=== PATIENT | male | born 1995 | race Caucasian/White ===

== ENCOUNTER 2020-11-03 13:40 | Emergency (ER) | payer MEDICAID, SELFPAY ==
[2020-11-03 14:02] VITALS: BP 130/69; PULSE 81; RESP 17; TEMP 37; O2SAT 99; BMI 33.6
[2020-11-03 16:46] VITALS: BP 152/82; PULSE 83; RESP 16; TEMP 37; O2SAT 97
--- NOTE | 2020-11-03 17:08 | ED_ITS ---
HPI - General Adult General Chief complaint: General Medical Stated complaint: swollen jaw area,no inj Time Seen by Provider: 11/03/20 14:07 Source: patient Mode of arrival: ambulatory Limitations: no limitations History of Present Illness HPI narrative: RIGHT-SIDED LOWER MOLAR PAIN/CHEEK SWELLING FOR THE PAST 1 DAY Onset (ago): day(s) Location: right Radiation: non-radiation Severity: moderate Severity scale (1-10): 4 Exacerbating factors: none Treatments prior to arrival: none Related Data Previous Rx's Medication Instructions Recorded ibuprofen 800 mg PO Q8H PRN #30 tab 11/03/20 penicillin V potassium 500 mg PO BID 10 Days #20 tab 11/03/20 Allergies Allergy/AdvReac Type Severity Reaction Status Date / Time SEASONAL ALLERGIES Allergy Mild RUNNY NOSE Uncoded 06/26/20 16:24 SNEEZING pollen Allergy Unknown Uncoded 08/07/14 00:00 Review of Systems Review of Systems: Constitutional: No Weight loss, No Fever, No Chills, No Night Sweats, No Fatigue, No Malaise ENT/Mouth: No Hearing loss, No Ear Pain, No Nasal Congestion, No Sinus Pain, No Hoarseness, No sore throat, No Rhinorrhea, No Swallowing Difficulty Eyes: No Eye Pain, No Swelling, No Redness, No Foreign Body, No Discharge, No Vision Changes Cardiovascular: No Chest Pain, No SOB, No Dyspnea on Exertion, No Orthopnea Respiratory: Negative Gastrointestinal: Negative Genitourinary: Negative Musculoskeletal: No joint pain, No Myalgias, No Joint Swelling Skin: No Skin Lesions, No rash Neuro: No Weakness, No Numbness, No Paresthesias, No Loss of Consciousness, No Dizziness, No Headache Psych: No Social Issues Heme/Lymph: No Bruising, No Bleeding,No Lymphadenopathy Endocrine: No Polyuria, No Polydipsia, No Temperature Intolerance Yes all other systems are reviewed and are negative REPLACED BY [facility] Past Medical History Medical History (Updated 11/03/20 @ 17:20 by Sincere Masters NP) Patient denies medical problems Social History Social History Smoked in Last 30 Days: Yes Use of substances other than those prescribed or required for medical reasons: Yes Substance Use Type: Marijuana Substance Use Frequency: Weekly Last Used Substance: Days (ago) Advance Directives: No Advance Directives Information Provided: Yes Physical Exam Vital Signs: Vital Signs: Last Vital Signs Temp 98.6 F 11/03/20 16:46 Pulse 83 11/03/20 16:46 Resp 16 11/03/20 16:46 BP 152/82 H 11/03/20 16:46 Pulse Ox 97 11/03/20 16:46 Body Mass Index 33.6 Reviewed Const: General: cooperative and healthy appearing; No acute distress or intoxicated appearing Nutritional Appearance: average body habitus Orientation/consciousness: patient oriented x3 HENMT: Head: Yes normal to inspection Ears: hearing grossly normal bilaterally Teeth image: 1. Extensive decay to 30 and 31 with previous feeling. Right-sided cheek with mild swelling no obvious erythema or palpable mass. Eyes: General: appearance normal, both eyes and all related structures Visual Hernandez: normal visual hernandez by confrontation Neck: Neck: Yes normal visual inspection, No positive Brudzinski's sign, No positive Kernig's sign and No tender Thyroid: Thyroid normal Chest: Chest palpation & inspection: normal inspection of the chest Resp: Effort & Inspection: normal respiratory effort Cardio: Jugular venous distension: no JVD Skin: General skin exam: no rashes or lesions noted Neuro: General: patient oriented x3 Extrem: General: Yes normal to inspection Discharge Plan Discharge Clinical Impression: Pain due to dental caries Patient Disposition: Home, Self-Care Instructions: Mouth Care (ED) Additional Instructions: Salt water gargle Chew on sour candy Warm compresses [place] diet Push fluids Take antibiotic as prescribed Follow-up with Dental as scheduled next case he has symptoms Thank you Prescriptions: New ibuprofen 800 mg tablet 800 mg PO Q8H PRN (Reason: pain) Qty: 30 RF: 0 penicillin V potassium 500 mg tablet 500 mg PO BID 10 Days Qty: 20 RF: 0 Referrals: Physician,None [Primary Care Provider] - 3 days (Dental as scheduled)
== END 2020-11-03 17:41 | disposition home or self-care (01) ==
PROVIDERS: Emergency Provider Emergency Medicine Emergency Medical Services
DX: K02.9 Dental caries, unspecified (principal); K08.89 Other specified disorders of teeth and supporting structures
CPT/HCPCS: 99283; 99284

== ENCOUNTER 2020-12-29 18:55 | Emergency (ER) | payer MEDICAID, SELFPAY ==
[2020-12-29 19:25] VITALS: BP 143/81; PULSE 63; RESP 16; TEMP 36.8; O2SAT 99; BMI 31.3
--- NOTE | 2020-12-29 21:26 | ED.NAVMDI ---
HPI - Nausea/Vomiting/Diarrhea General Chief complaint: Nausea/Vomiting/Diarrhea Stated complaint: ABD PAIN Time Seen by Provider: 12/29/20 21:05 Source: patient Mode of arrival: ambulatory Limitations: no limitations History of Present Illness HPI Narrative: Patient comes emergency room complaining of nausea vomiting and diarrhea since this morning. Patient states that this morning he woke up complaining of abdominal cramping, states he has had multiple episodes of vomiting and diarrhea, approximately 6 of each. Patient denies blood in the vomit or stool. Denies fever or chills MD elicited complaint: nausea, vomiting and diarrhea Related Data Previous Rx's Medication Instructions Recorded ibuprofen 800 mg PO Q8H PRN #30 tab 11/03/20 penicillin V potassium 500 mg PO BID 10 Days #20 tab 11/03/20 ibuprofen 600 mg PO TID PRN #14 tab 12/29/20 penicillin V potassium 500 mg PO BID #20 tab 12/29/20 Allergies Allergy/AdvReac Type Severity Reaction Status Date / Time SEASONAL ALLERGIES Allergy Mild RUNNY NOSE Uncoded 06/26/20 16:24 SNEEZING pollen Allergy Unknown Uncoded 08/07/14 00:00 Review of Systems Review of Systems: Constitutional : No Weight loss, No Fever, No Chills, No Night Sweats, No Fatigue, No Malaise ENT/Mouth : No Hearing loss, No Ear Pain, No Nasal Congestion, No Sinus Pain, No Hoarseness, No sore throat, No Rhinorrhea, No Swallowing Difficulty Eyes: No Eye Pain, No Swelling, No Redness, No Foreign Body, No Discharge, No Vision Changes Cardiovascular : No Chest Pain, No SOB, No Dyspnea on Exertion, No Orthopnea, No Edema, No Palpitations Respiratory : No Cough, No Sputum, No Wheezing, No Smoke Exposure, No Dyspnea Gastrointestinal : Opening of nausea, multiple episodes of vomiting and diarrhea, No Constipation, complain of occasional abdominal cramping, No Hematochezia, No Melena Genitourinary : no irregular bleeding, No Dysuria, No Urinary Frequency, No Hematuria, No Urinary Incontinence, No Urgency, No Flank Pain, No Urinary Flow Changes, No Hesitancy Musculoskeletal : No joint pain, No Myalgias, No Joint Swelling Skin : No Skin Lesions, No rash Neuro : No Weakness, No Numbness, No Paresthesias, No Loss of Consciousness, No Dizziness, No Headache Psych : No Anxiety/Panic, No Depression, No SI/HI/AH/VH, No Social Issues, Heme/Lymph: No Bruising, No Bleeding,No Lymphadenopathy Endocrine : No Polyuria, No Polydipsia, No Temperature Intolerance PMF Past Medical History Medical History Patient denies medical problems Social History Social History Substance Use Type: Marijuana Advance Directives: No Advance Directives Information Provided: No Physical Exam Vital Signs: Vital Signs: Last Vital Signs Temp 98.2 F 12/29/20 19:25 Pulse 66 12/29/20 22:08 Resp 15 12/29/20 22:08 BP 103/48 L 12/29/20 22:08 Pulse Ox 98 12/29/20 22:08 Body Mass Index 31.3 Appearance: Alert. Oriented X3. No acute distress. Eyes: Pupils equal, round and reactive to light. ENT: Pharynx normal. Dental pain in the right maxillary side, chipped molar no visible abscess seen Neck: Normal inspection. Neck supple. No lymph nodes noted. No crepitus CVS: Normal heart rate and rhythm. Pulses normal. Normal S1 and S2 Respiratory: No respiratory distress. Breath sounds normal. No Wheezing. No rales Abdomen: Soft and nontender. No rigidity. No distention. good BS x4, no pain over the McBurney's point, negative Ashby's sign Skin: Skin warm and dry. Normal skin color. Normal skin turgor. Extremities: No lower extremity edema. No lower extremity edema. No Lacerations. No Rash Neuro: Oriented X 3. No motor deficit. No sensory deficit. Moving all extermities. No slurred speech. Course Course Course Narrative: Patient states that he feels much better, no longer having abdominal cramping vomiting or diarrhea. On physical exam prior to discharge as there is no abdominal tenderness in all 4 quadrants. However, now patient is complaining of chronic tooth pain. Patient states he has an appointment in 1 month. Patient was given 1 dose of ketorolac, rx for antibiotics provided MDM - Nausea/Vomiting/Diarrhea Lab Data Result diagrams: 12/29/20 22:01 12/29/20 22:01 Labs: Lab Results 12/29/20 12/29/20 Range/Units 22: 22:01 WBC 18.9 H (4.8-10.8) X10*3/uL RBC 4.86 (4.60-5.80) X10*6/uL Hgb 14.4 (14.0-18.0) g/dl Hct 43.2 (42-52) % MCV 88.9 (80-98) fL MCH 29.6 (27.0-33.0) pg MCHC 33.3 (31.0-36.0) g/dl RDW 13.0 (11.0-16.0) % Plt Count 349 (160-400) X10*3/uL MPV 10.5 (9.4-12.4) fL Immature Gran % (Auto) 0.4 (0.0-0.4) % Neut % (Auto) 92.9 H (45-73) % Lymph % (Auto) 4.6 L (20-40) % Dawson % (Auto) 1.9 L (2-11) % Eos % (Auto) 0.0 (0-4) % Baso % (Auto) 0.2 (0-2) % Lymph # (Auto) 0.9 L (1.2-4.9) X10*3/uL Dawson # (Auto) 0.4 (0.1-1.2) X10*3/uL Eos # (Auto) 0.0 (0.0-0.4) X10*3/uL Baso # (Auto) 0.0 (0.0-0.2) X10*3/uL Abs Immat Gran (auto) 0.07 H (0.00-0.03) X10*3/uL Absolute Neuts (auto) 17.6 H (2.0-8.3) X10*3/uL Absolute Nucleated RBC 0.000 (0.0-0.012) X10*3/uL Nucleated RBC % (auto) 0.0 (0.0-0.2) /100WBC Smear Tech's Comments VERIFIED Sodium 140 (135-145) mmol/L Potassium 4.2 (3.3-5.1) mmol/L Chloride 107 (96-108) mmol/L Carbon Dioxide 23 (22-29) mmol/L Anion Gap 14 (12-20) BUN 17 H (9-16) mg/dL Creatinine 0.75 (0.5-1.4) mg/dL Estim Creat Clear Calc 163.1 Estimated GFR > 60 Random Glucose 96 (60-115) mg/dL Calcium 9.5 (8.4-10.2) mg/dL Total Bilirubin 0.5 (0.0-1.0) mg/dL Direct Bilirubin 0.2 (0.0-0.5) mg/dL AST 20 (5-37) U/L ALT 34 (0-40) U/L Alkaline Phosphatase 99 (39-117) U/L Total Protein 7.5 (6.5-8.0) g/dL Albumin 4.5 (3.5-5.0) g/dL Discharge Plan Discharge Clinical Impression: Nausea vomiting and diarrhea, Chronic dental pain Patient Disposition: Home, Self-Care Instructions: Dental Abscess (ED), Acute Nausea and Vomiting (ED) Additional Instructions: Please follow-up with your primary care physician tomorrow. If you have any worsening or new symptoms, please return to the emergency room or call 911 Prescriptions: New penicillin V potassium 500 mg tablet 500 mg PO BID Qty: 20 RF: 0 ibuprofen 600 mg tablet 600 mg PO TID PRN (Reason: pain) Qty: 14 RF: 0 No Action ibuprofen 800 mg tablet 800 mg PO Q8H PRN (Reason: pain) Qty: 30 RF: 0 penicillin V potassium 500 mg tablet 500 mg PO BID 10 Days Qty: 20 RF: 0
[2020-12-29] MEDS: ondansetron HCL 4 MG/2 ML VIAL IVPUSH (22:03)
[2020-12-29] MEDS: Magnesium Hydrox/Alum Hydrox 30 ML ORAL.SUSP PO (22:04)
[2020-12-29] MEDS: PHENobarb/Hyoscy/Atropine/Scop 10 ML ELIXIR PO (22:04)
[2020-12-29] MEDS: 0.9 % Sodium Chloride 1,000 ML 999 ML IVCONT (22:04)
[2020-12-29 22:08] VITALS: BP 103/48; PULSE 66; RESP 15; O2SAT 98
[2020-12-29 22:17] LABS: Basophils Percent Auto 0.2 % (0-2); Hematocrit 43.2 % (42-52); Hemoglobin 14.4 g/dl (14.0-18.0); Imm Gran Abs Auto 0.07 X10*3/uL (0.00-0.03); Imm Gran Pct Auto 0.4 % (0.0-0.4); Lymphocytes Absolute Auto 0.9 X10*3/uL (1.2-4.9); Lymphocytes Percent Auto 4.6 % (20-40); MANUAL DIFF FLAG SCAN; Mean Corpuscular HGB Conc 33.3 g/dl (31.0-36.0); Mean Corpuscular Hemoglobin 29.6 pg (27.0-33.0); Mean Corpuscular Volume 88.9 fL (80-98); Mean Platelet Volume 10.5 fL (9.4-12.4); Monocytes Absolute Auto 0.4 X10*3/uL (0.1-1.2); Monocytes Percent Auto 1.9 % (2-11); Neutrophils Absolute Auto 17.6 X10*3/uL (2.0-8.3); Neutrophils Percent Auto 92.9 % (45-73); Platelet Count 349 X10*3/uL (160-400); Red Blood Count 4.86 X10*6/uL (4.60-5.80); SCAN SMEAR FLAG 1; White Blood Count 18.9 X10*3/uL (4.8-10.8)
[2020-12-29 22:38] LABS: SLIDE REVIEW VERIFIED
[2020-12-29 22:40] LABS: Alanine Aminotransferase 34 U/L (0-40); Albumin Level 4.5 g/dL (3.5-5.0); Alkaline Phosphatase 99 U/L (39-117); Anion Gap 14 (12-20); Aspartate Amino Transferase 20 U/L (5-37); Bilirubin Direct 0.2 mg/dL (0.0-0.5); Bilirubin Total 0.5 mg/dL (0.0-1.0); Blood Urea Nitrogen 17 mg/dL (9-16); Calcium 9.5 mg/dL (8.4-10.2); Carbon Dioxide 23 mmol/L (22-29); Chloride 107 mmol/L (96-108); Creatinine Clr Calc Pharmacy 163.1; Estimated Glomerular Filt Rate > 60; Glucose Random 96 mg/dL (60-115); Potassium 4.2 mmol/L (3.3-5.1); Sodium 140 mmol/L (135-145); Total Protein 7.5 g/dL (6.5-8.0)
[2020-12-29] MEDS: Ketorolac Tromethamine 30 MG/ML VIAL IVPUSH (23:21)
[2020-12-29] MEDS: Penicillin V Potassium 250 MG TABLET 500 MG PO (23:21)
== END 2020-12-29 23:31 | disposition home or self-care (01) ==
PROVIDERS: Emergency Provider Emergency Medicine
DX: R11.2 Nausea with vomiting, unspecified (principal); R19.7 Diarrhea, unspecified; K08.89 Other specified disorders of teeth and supporting structures; G89.29 Other chronic pain; F12.90 Cannabis use, unspecified, uncomplicated
CPT/HCPCS: 36415; 80048; 80076; 85025; 96361; 96374; 96375; 99283; 99284; J1885; J2405

== ENCOUNTER 2021-01-01 00:12 | Emergency (ER) | payer MEDICAID, SELFPAY ==
--- NOTE | ~2021-01-01 | XR_ITS ---
EXAMINATION: RIGHT ANKLE 3 VIEWS CLINICAL INFORMATION: Pain after fall. COMPARISON: 04/21/2016. TECHNIQUE: AP, lateral, oblique views of the right ankle were obtained. FINDINGS: There are no fractures or dislocations. There is soft tissue swelling overlying the lateral malleolus. No ankle joint effusion is identified. XR/XR ankle RT min 3V IMPRESSION: Soft tissue swelling without fracture or dislocation.
[2021-01-01 00:55] VITALS: BP 144/71; PULSE 89; RESP 16; TEMP 36.7; O2SAT 98; BMI 31.3
[2021-01-01] MEDS: Ibuprofen 400 MG TABLET PO (02:12)
[2021-01-01] MEDS: Acetaminophen 325 MG TABLET 975 MG PO (02:12)
--- NOTE | 2021-01-01 02:19 | ED.GENADULT ---
HPI - General Adult General Chief complaint: Extremity Injury, Lower Stated complaint: Ankle inj Time Seen by Provider: 01/01/21 01:03 Source: patient History of Present Illness HPI narrative: Male without significant past medical history who presents after jumping on a trampoline in the park earlier in the day and stating that he rolled his right ankle when he landed. Patient is able to ambulate but states with increased pain. In addition, patient describes swelling at the right ankle. Related Data Previous Rx's Medication Instructions Recorded ibuprofen 800 mg PO Q8H PRN #30 tab 11/03/20 penicillin V potassium 500 mg PO BID 10 Days #20 tab 11/03/20 ibuprofen 600 mg PO TID PRN #14 tab 12/29/20 penicillin V potassium 500 mg PO BID #20 tab 12/29/20 Allergies Allergy/AdvReac Type Severity Reaction Status Date / Time SEASONAL ALLERGIES Allergy Mild RUNNY NOSE Uncoded 01/01/21 00:48 SNEEZING pollen Allergy Unknown Sneezing Uncoded 01/01/21 00:48 Review of Systems Review of Systems: Pertinent positives and negatives as stated in HPI 10 point review of systems is otherwise negative. PMFSH Past Medical History Source: nursing notes reviewed Medical History Patient denies medical problems Social History Social History Substance Use Type: Marijuana Advance Directives: No Physical Exam Vital Signs: Vital Signs: Last Vital Signs Temp 98.0 F 01/01/21 00:55 Pulse 89 01/01/21 00:55 Resp 16 01/01/21 00:55 BP 144/71 H 01/01/21 00:55 Pulse Ox 98 01/01/21 00:55 Body Mass Index 31.3 VITAL SIGNS: Reviewed. GENERAL: Well developed, well nourished, in no acute distress. HEAD: Normocephalic/atraumatic, NOSE: Nares patent bilateral OROPHARYNX: no oral lesions noted, posterior pharynx clear NECK: Supple, no adenopathy LUNGS: Normal breath sounds. No adventitious sounds or accessory muscle use. SpO2<98> CARDIOVASCULAR: Regular rate and rhythm without noted murmurs ABDOMEN: Soft, non-tender, non-distended with bowel sounds. RIGHT ANKLE: Swelling noted to the lateral malleolus, no obvious deformities, foot warm with capillary refill less than 3 seconds, palpable DP/PT NEUROLOGIC: Alert and oriented x 4. Course Course Course Narrative: This is a 25-year-old male with history and clinical presentation consistent with right ankle sprain which was further cooperated by x-rays being negative for evidence of fracture or dislocation. All results and findings were discussed with him bedside and he was discharged in stable condition with an Mau wrap and crutches. Discharge Plan Discharge Clinical Impression: Right ankle sprain Qualifiers: Encounter type: initial encounter Involved ligament of ankle: unspecified ligament Qualified Code(s): S93.401A - Sprain of unspecified ligament of right ankle, initial encounter Patient Disposition: Home, Self-Care Instructions: Ankle Sprain (ED), Crutch Instructions (ED) Additional Instructions: 1. [id number] Tylenol/ibuprofen as needed for pain control. Please use as directed on the outside packaging. 2. Apply ice to unexposed skin for 15-20 minutes, 3 to 4 times a day and keep it elevated when possible. 3. Please follow-up with your primary care provider by calling the office in the morning to schedule re-evaluation. Do not hesitate to return to the emergency department should you experience any acute worsening of your symptoms. Prescriptions: No Action ibuprofen 800 mg tablet 800 mg PO Q8H PRN (Reason: pain) Qty: 30 RF: 0 penicillin V potassium 500 mg tablet 500 mg PO BID 10 Days Qty: 20 RF: 0 penicillin V potassium 500 mg tablet 500 mg PO BID Qty: 20 RF: 0 ibuprofen 600 mg tablet 600 mg PO TID PRN (Reason: pain) Qty: 14 RF: 0 Referrals: Physician,None [Primary Care Provider] - 2 days Stand Alone Forms: Work/School Release
== END 2021-01-01 02:40 | disposition home or self-care (01) ==
PROVIDERS: Emergency Provider Student in an Organized Health Care Education/Training Program
DX: S93.401A Sprain of unspecified ligament of right ankle, initial encounter (principal); X50.1XXA Overexertion from prolonged static or awkward postures, initial encounter; F12.90 Cannabis use, unspecified, uncomplicated; Y93.44 Activity, trampolining; Y92.830 Public park as the place of occurrence of the external cause; Y99.8 Other external cause status
CPT/HCPCS: 73610; 99283

== ENCOUNTER 2021-02-10 10:36 | Emergency (ER) | payer MEDICAID, SELFPAY ==
[2021-02-10 10:44] VITALS: BP 147/73; PULSE 59; RESP 16; TEMP 36.3; O2SAT 98; BMI 31.3
--- NOTE | 2021-02-10 10:48 | ED.EYEPROB ---
HPI - Eye Problem General Chief complaint: Eye Problems Stated complaint: eye problem Time Seen by Provider: 02/10/21 10:48 Source: patient Mode of arrival: ambulatory Limitations: no limitations History of Present Illness HPI Narrative: 26 y/o otherwise healthy male presenting with red, irritated right eye for the last 2 days. He denies trauma or foreign body sensation. He reports this morning he woke up with yellow crusting of the eye. Denies vision changes. He does not wear contacts or glasses. chief complaint: eye redness Onset (ago): day(s) (2) Onset description: gradual Duration: constant Location: left eye Eye Symptoms: redness, itching and discharge Place: home Mechanism: none Severity: moderate If Pain, Quality: aching Associated symptoms: none Treatments Prior to Arrival: none Related Data Patient tetanus UTD: Yes Previous Rx's Medication Instructions Recorded ibuprofen 800 mg PO Q8H PRN #30 tab 11/03/20 penicillin V potassium 500 mg PO BID 10 Days #20 tab 11/03/20 ibuprofen 600 mg PO TID PRN #14 tab 12/29/20 penicillin V potassium 500 mg PO BID #20 tab 12/29/20 gentamicin 1 drp OPHTHALMIC-RIGHT Q4H #5 ml 02/10/21 Allergies Allergy/AdvReac Type Severity Reaction Status Date / Time SEASONAL ALLERGIES Allergy Mild RUNNY NOSE Uncoded 01/01/21 00:48 SNEEZING pollen Allergy Unknown Sneezing Uncoded 01/01/21 00:48 Review of Systems Review of Systems: Constitutional: No Fever, No Chills ENT/Mouth: No sore throat, No Rhinorrhea Eyes: + Eye Pain, No Swelling, + Redness, +Discharge Cardiovascular: No Chest Pain, No SOB Respiratory: No Cough, No Sputum Gastrointestinal: No Nausea, No Vomiting Neuro: No Headache Neurologic: Reports Abnormal speech present [facility] Past Medical History Attestation statement: The following information was validated with the patient. Medical History Patient denies medical problems Social History Social History Smoked in Last 30 Days: No Use of substances other than those prescribed or required for medical reasons: Yes Substance Use Type: Marijuana Substance Use Frequency: Daily Advance Directives: No Advance Directives Information Provided: No Physical Exam Vital Signs: Vital Signs: Last Vital Signs Temp 97.4 F 02/10/21 10:44 Pulse 59 02/10/21 10:44 Resp 16 02/10/21 10:44 BP 147/73 H 02/10/21 10:44 Pulse Ox 98 02/10/21 10:44 Body Mass Index 31.3 Const: General: cooperative, healthy appearing and comfortable HENMT: Head: Yes normal to inspection, Yes normocephalic and Yes atraumatic Ears: hearing grossly normal bilaterally General nose exam: Normal external nose present Face and sinus: Yes normal facial exam Mouth: Normal oral and palatal mucosa present, lip normal, tongue normal, oropharynx normal and moist mucous membranes Teeth and gingiva: dentition normal and gingiva normal Throat: Yes posterior oropharynx normal, Yes tonsils normal and Yes uvula midline Eyes: Visual White: normal visual white by confrontation Alignment and Position: alignment normal and position normal Periorbital: periorbital findings normal Eyelids: Yes eyelids normal Conjunctivae: conjunctival abnormal right conjunctival injection diffuse Sclerae: scleral abnormal right scleral injection diffuse Corneas: corneas normal Pupils: Equal, round and reactive pupils present EOM: EOMs intact bilaterally Neck: Neck: Yes normal visual inspection and Yes no lymphadenopathy Chest: Chest palpation & inspection: normal inspection of the chest Resp: Effort & Inspection: normal respiratory effort and able to speak in complete sentences Neuro: General: gait normal and moves all extremities Cranial nerves: Yes Equal, round and reactive pupils present Cognition (Neuro): normal cognition Speech: Abnormal speech present Gait exam (Neuro): Normal gait present Extrem: General: Yes normal to inspection Psych: Appearance: grossly normal and well kempt Course Course Course Narrative: 26 y/o male presenting with right eye redness, irritation and discharge. Florescence examination did not show any corneal abrasion. No visual changes. No FB. Will treat for bacterial conjunctivitis. Rx sent to pharmacy and patient counseled. Stable for d/c. Discharge Plan Discharge Clinical Impression: Bacterial conjunctivitis Patient Disposition: Home, Self-Care Instructions: Conjunctivitis (ED) Additional Instructions: Use the prescribed antibiotic eye drops as directed. Do not rub your eye, when it chavez gentle pat with a towel. Follow up with your doctor as needed. If you have no improvement or worsening symptoms come back to the ER for further evaluation. Prescriptions: New gentamicin 0.3 % drops 1 drp ophthalmic-Right Q4H Qty: 5 RF: 0 No Action ibuprofen 800 mg tablet 800 mg PO Q8H PRN (Reason: pain) Qty: 30 RF: 0 penicillin V potassium 500 mg tablet 500 mg PO BID 10 Days Qty: 20 RF: 0 penicillin V potassium 500 mg tablet 500 mg PO BID Qty: 20 RF: 0 ibuprofen 600 mg tablet 600 mg PO TID PRN (Reason: pain) Qty: 14 RF: 0 Interventions: ED Discharge Assessment Last Done: 02/10/21 11:20 Discharge Date/Time: 02/10/21 11:20
[2021-02-10] MEDS: Tetracaine HCl/PF 0.5% Oph Sol 4 ML DROPS 3 DROP EYE-RIGHT (11:05)
[2021-02-10] MEDS: Fluorescein Sodium STRIP 1 STRIP EYE-RIGHT (11:05)
== END 2021-02-10 11:20 | disposition home or self-care (01) ==
PROVIDERS: Emergency Provider Emergency Medicine
DX: H10.9 Unspecified conjunctivitis (principal); H57.11 Ocular pain, right eye
CPT/HCPCS: 99283; 99284

== ENCOUNTER 2021-06-12 16:02 | Emergency (ER) | payer MEDICAID, SELFPAY ==
[2021-06-12 16:18] VITALS: BP 127/76; PULSE 60; RESP 16; TEMP 36.6; O2SAT 99; BMI 33.6
[2021-06-12] MEDS: oxyCODONE HCl Immed Release 5 MG TABLET PO (16:47)
[2021-06-12] MEDS: Amoxicillin/Potassium Clav 875 MG TABLET PO (16:47)
--- NOTE | 2021-06-12 16:54 | ED.DENTAL ---
HPI - Dental/Oral General Chief complaint: Dental/Oral Stated complaint: jaw pain Time Seen by Provider: 06/12/21 16:29 Source: patient Mode of arrival: ambulatory Limitations: no limitations History of Present Illness HPI Narrative: Patient is a 26-year-old male with no significant past medical history who is complaining of right-sided cheek pain x4 days, rates the pain 10/10 and states is very tender and is having a hard time opening his mouth without pain. He thinks it has his wisdom teeth as she has never had them removed. He denies any fevers. Related Data Previous Rx's Medication Instructions Recorded ibuprofen 800 mg tablet 800 mg PO Q8H PRN #30 tab 11/03/20 penicillin V potassium 500 mg 500 mg PO BID 10 Days #20 tab 11/03/20 tablet ibuprofen 600 mg tablet 600 mg PO TID PRN #14 tab 12/29/20 penicillin V potassium 500 mg 500 mg PO BID #20 tab 12/29/20 tablet gentamicin 0.3 % eye drops 1 drp OPHTHALMIC-RIGHT Q4H #5 ml 02/10/21 amoxicillin 875 mg-potassium 1 tab PO Q12H #20 tab 06/12/21 clavulanate 125 mg tablet (Augmentin) oxycodone 5 mg tablet 5 mg PO Q6H PRN #20 tab 06/12/21 Allergies Allergy/AdvReac Type Severity Reaction Status Date / Time SEASONAL ALLERGIES Allergy Mild RUNNY NOSE Uncoded 01/01/21 00:48 SNEEZING pollen Allergy Unknown Sneezing Uncoded 01/01/21 00:48 Review of Systems Review of Systems: Yes all other systems are reviewed and are negative PMFSH Past Medical History Medical History Patient denies medical problems Social History Social History Substance Use Type: Marijuana Advance Directives: No Advance Directives Information Provided: No Physical Exam Vital Signs: Vital Signs: Last Vital Signs Temp 97.9 F 06/12/21 16:18 Pulse 60 06/12/21 16:18 Resp 16 06/12/21 16:18 BP 127/76 06/12/21 16:18 Pulse Ox 99 06/12/21 16:18 Body Mass Index 33.6 Const: General: cooperative, healthy appearing, comfortable, no acute distress and well developed Orientation/consciousness: patient oriented x3 Limitations: no limitations HENMT: Head: Yes normal to inspection Ears: hearing grossly normal bilaterally, external ears normal, TM's normal bilaterally, EAC's normal, mastoids normal and no periauricular adenopathy General nose exam: Normal external nose present Face and sinus: No normal facial exam, Yes face symmetric and Yes edema (right cheek, small area of induration, very TTP, no warmth or ecchymosis ) Eyes: General: appearance normal, both eyes and all related structures Neck: Neck: Yes normal visual inspection and Yes full ROM Resp: Effort & Inspection: normal respiratory effort and able to speak in complete sentences Skin: General skin exam: no rashes or lesions noted Neuro: General: patient oriented x3 Extrem: General: Yes normal to inspection Course Course Course Narrative: Patient is a 26-year-old male with no significant past medical history who is complaining of right-sided cheek pain x4 days, rates the pain 10/10 and states is very tender and is having a hard time opening his mouth without pain. VSS, PE reveals tender area in cheek not extending to the bone or the ear. Will give RX for augmentin and pain control Discharge Plan Discharge Clinical Impression: Dental abscess Patient Disposition: Home, Self-Care Instructions: Dental Abscess (ED) Additional Instructions: I have sent a prescription for oxycodone and Augmentin to your pharmacy, please take the oxycodone as needed for pain and the Augmentin as directed. Your pain she got a little bit better each day, please be sure to follow-up with a dentist or your PCP next week. If the pain gets worse or extends to behind your right ear or to the floor of your mouth, please return to the emergency department as soon as possible. Prescriptions: New amoxicillin-pot clavulanate [Augmentin] 875-125 mg tablet 1 tab PO Q12H Qty: 20 RF: 0 oxycodone 5 mg tablet 5 mg PO Q6H PRN (Reason: pain) Qty: 20 RF: 0 No Action gentamicin 0.3 % drops 1 drp ophthalmic-Right Q4H Qty: 5 RF: 0 ibuprofen 800 mg tablet 800 mg PO Q8H PRN (Reason: pain) Qty: 30 RF: 0 penicillin V potassium 500 mg tablet 500 mg PO BID 10 Days Qty: 20 RF: 0 penicillin V potassium 500 mg tablet 500 mg PO BID Qty: 20 RF: 0 ibuprofen 600 mg tablet 600 mg PO TID PRN (Reason: pain) Qty: 14 RF: 0 Interventions: ED Discharge Assessment Last Done: 06/12/21 17:21 Discharge Date/Time: 06/12/21 17:24
== END 2021-06-12 17:24 | disposition home or self-care (01) ==
PROVIDERS: Emergency Provider Emergency Medicine
DX: K04.7 Periapical abscess without sinus (principal); R07.9 Chest pain, unspecified; Z79.899 Other long term (current) drug therapy
CPT/HCPCS: 99283; 99284

== ENCOUNTER 2021-06-22 11:10 | Outpatient (REF) | payer MEDICAID, SELFPAY | END 2021-06-22 11:11 | disposition home or self-care (01) | LOC: HO.LAB 11:10 | PROVIDERS: Visit Provider Internal Medicine | DX: Z20.822 Contact with and (suspected) exposure to COVID-19 (principal) | CPT/HCPCS: C9803; U0003; U0005 ==

== ENCOUNTER 2022-03-23 21:30 | Emergency (ER) | payer MEDICAID, SELFPAY ==
[2022-03-23 22:36] VITALS: BP 104/68; PULSE 69; RESP 18; TEMP 36.8; O2SAT 94; BMI 31.3
[2022-03-23 22:59] LABS: COVID-19 Test Negative (Negative)
[2022-03-23 23:09] LABS: IDNOW Serial# 9DB6401D; Influenza A Negative (Negative); Influenza B2 Negative (Negative)
--- NOTE | 2022-03-23 23:37 | ED.URI ---
HPI - URI/Sore Throat General Chief Complaint: Upper Respiratory Symptoms Stated Complaint: cough Time Seen by Provider: 03/23/22 23:35 Source: patient Mode of arrival: ambulatory Limitations: no limitations History of Present Illness HPI Narrative: Patient comes to the emergency room complaining of 2 days of cough and nasal congestion. The patient and his family are staying at a longterm. They state that they are younger son was playing with the child at the longterm 5 days ago, then the child started having URI symptoms. No fever no chills for the patient, no shortness of breath. Related Data Previous Rx's Medication Instructions Recorded ibuprofen 800 mg tablet 800 mg PO Q8H PRN pain #30 tabs 11/03/20 penicillin V potassium 500 mg 500 mg PO BID 10 days #20 tabs 11/03/20 tablet ibuprofen 600 mg tablet 600 mg PO TID PRN pain #14 tabs 12/29/20 penicillin V potassium 500 mg 500 mg PO BID #20 tabs 12/29/20 tablet gentamicin 0.3 % eye drops 1 drp ophthalmic-Right Q4H #5 mL 02/10/21 amoxicillin 875 mg-potassium 1 tab PO Q12H #20 tabs 06/12/21 clavulanate 125 mg tablet (Augmentin) oxycodone 5 mg tablet 5 mg PO Q6H PRN pain #20 tabs 06/12/21 guaifenesin 400 mg tablet 400 mg PO Q4H PRN cough #14 tabs 03/23/22 Allergies Allergy/AdvReac Type Severity Reaction Status Date / Time SEASONAL ALLERGIES Allergy Mild RUNNY NOSE Uncoded 03/23/22 22:35 SNEEZING pollen Allergy Unknown Sneezing Uncoded 03/23/22 22:35 Review of Systems Review of Systems: Constitutional : No Weight loss, No Fever, No Chills, No Night Sweats, No Fatigue, No Malaise ENT/Mouth : No Hearing loss, No Ear Pain, complaining of Nasal Congestion, No Sinus Pain, No Hoarseness, No sore throat, No Rhinorrhea, No Swallowing Difficulty Eyes: No Eye Pain, No Swelling, No Redness, No Foreign Body, No Discharge, No Vision Changes Cardiovascular : No Chest Pain, No SOB, No Dyspnea on Exertion, No Orthopnea, No Edema, No Palpitations Respiratory : Complaining of Cough, No Sputum, No Wheezing, No Smoke Exposure, No Dyspnea Gastrointestinal : No Nausea, No Vomiting, No Diarrhea, No Constipation, No abdominal Pain, No Hematochezia, No Melena Genitourinary : no irregular bleeding, No Dysuria, No Urinary Frequency, No Hematuria, No Urinary Incontinence, No Urgency, No Flank Pain, No Urinary Flow Changes, No Hesitancy Musculoskeletal : No joint pain, No Myalgias, No Joint Swelling Skin : No Skin Lesions, No rash Neuro : No Weakness, No Numbness, No Paresthesias, No Loss of Consciousness, No Dizziness, No Headache Psych : No Anxiety/Panic, No Depression, No SI/HI/AH/VH, No Social Issues, Heme/Lymph: No Bruising, No Bleeding,No Lymphadenopathy Endocrine : No Polyuria, No Polydipsia, No Temperature Intolerance PMFSH Past Medical History Medical History Patient denies medical problems Social History Social History Substance Use Type: Marijuana Physical Exam Vital Signs: Vital Signs: Last Vital Signs Temp 98.2 F 03/23/22 22:36 Pulse 69 03/23/22 22:36 Resp 18 03/23/22 22:36 BP 104/68 03/23/22 22:36 Pulse Ox 94 03/23/22 22:36 O2 Del Method 03/23/22 22:36 BMI result Body Mass Index 31.3 Const: Other: Appearance: Alert. Oriented X3. No acute distress. Eyes: Pupils equal, round and reactive to light. ENT: Pharynx normal. Neck: Normal inspection. Neck supple. No lymph nodes noted. No crepitus CVS: Normal heart rate and rhythm. Pulses normal. Normal S1 and S2 Respiratory: No respiratory distress. Breath sounds normal. No Wheezing. No rales Abdomen: Soft and nontender. No rigidity. No distention. Skin: Skin warm and dry. Normal skin color. Normal skin turgor. Extremities: No lower extremity edema. No Lacerations. No Rash Neuro: Oriented X 3. No motor deficit. No sensory deficit. Moving all extremities. No slurred speech. CN 2 through 12 grossly intact Psych: calm, cooperative, normal affect Course Course Course Narrative: Patient tested negative for COVID and influenza, so that his son. Patient likely having a viral URI. Patient has no fever no chills MDM - URI/Sore Throat Lab Data Labs: Lab Results 03/23/22 03/23/22 Range/Units 22:34 22:34 COVID-19 ([place]) Negative (Negative) COVID-19 Clin Com See Note Influenza Type A ([place]) Negative (Negative) Influenza Type B ([facility]) Negative (Negative) Influenza A & B Note See Note Discharge Plan Discharge Clinical Impression: Viral URI, Cough Patient Disposition: Home, Self-Care Instructions: Viral Syndrome (ED) Additional Instructions: Please follow-up with your primary care physician tomorrow. If you have any worsening or new symptoms, please return to the emergency room or call 911 Prescriptions: New guaifenesin 400 mg tablet 400 mg PO Q4H PRN (Reason: cough) Qty: 14 0RF No Action gentamicin 0.3 % drops 1 drp ophthalmic-Right Q4H Qty: 5 0RF ibuprofen 800 mg tablet 800 mg PO Q8H PRN (Reason: pain) Qty: 30 0RF penicillin V potassium 500 mg tablet 500 mg PO BID 10 Days Qty: 20 0RF penicillin V potassium 500 mg tablet 500 mg PO BID Qty: 20 0RF ibuprofen 600 mg tablet 600 mg PO TID PRN (Reason: pain) Qty: 14 0RF amoxicillin-pot clavulanate [Augmentin] 875-125 mg tablet 1 tab PO Q12H Qty: 20 0RF oxycodone 5 mg tablet 5 mg PO Q6H PRN (Reason: pain) Qty: 20 0RF Rx Instructions: Patient may request partial fill Attending Name Dr Ania Gay and BREANNA#: my BREANNA# [id number]
== END 2022-03-24 00:45 | disposition home or self-care (01) ==
PROVIDERS: Emergency Provider Emergency Medicine
DX: J06.9 Acute upper respiratory infection, unspecified (principal); Z20.822 Contact with and (suspected) exposure to COVID-19; R05.9 Cough, unspecified
CPT/HCPCS: 87502; 87635; 99282; 99283

== ENCOUNTER 2022-10-30 17:03 | Emergency (ER) | payer MEDICAID, SELFPAY ==
[2022-10-30 17:24] VITALS: BP 143/86; PULSE 75; RESP 97; TEMP 36.3; BMI 31.3
--- NOTE | 2022-10-30 17:24 | ED.SKABFB ---
HPI - Skin/Abscess/Foreign Bdy General Stated complaint: cyst on lower abd Related Data Previous Rx's Medication Instructions Recorded ibuprofen 800 mg tablet 800 mg PO Q8H PRN pain #30 tabs 11/03/20 penicillin V potassium 500 mg 500 mg PO BID 10 days #20 tabs 11/03/20 tablet ibuprofen 600 mg tablet 600 mg PO TID PRN pain #14 tabs 12/29/20 penicillin V potassium 500 mg 500 mg PO BID #20 tabs 12/29/20 tablet gentamicin 0.3 % eye drops 1 drp ophthalmic-Right Q4H #5 mL 02/10/21 amoxicillin 875 mg-potassium 1 tab PO Q12H #20 tabs 06/12/21 clavulanate 125 mg tablet (Augmentin) oxycodone 5 mg tablet 5 mg PO Q6H PRN pain #20 tabs 06/12/21 guaifenesin 400 mg tablet 400 mg PO Q4H PRN cough #14 tabs 03/23/22 Allergies Allergy/AdvReac Type Severity Reaction Status Date / Time SEASONAL ALLERGIES Allergy Mild RUNNY NOSE Uncoded 03/23/22 22:35 SNEEZING pollen Allergy Unknown Sneezing Uncoded 03/23/22 22:35 [facility] Past Medical History Medical History Patient denies medical problems Social History Social History Substance Use Type: Marijuana Course Course Course Narrative: This is an RME: Additional HPI, ROS, PE not included below will be deferred to primary provider. Patient is a 27-year-old male presents emergency department for evauation of a cyst within abdominal fold, started as a pimple 2 days ago, popped it, but has increased in size, pain is severe with surrounding erythema, no longer draining. Denies any history of similar lesions in the past. Denies fevers or chills. Plan: likely abscess, further evaluation for incision and drainage Discharge Plan Discharge Prescriptions: No Action gentamicin 0.3 % drops 1 drp ophthalmic-Right Q4H Qty: 5 0RF ibuprofen 800 mg tablet 800 mg PO Q8H PRN (Reason: pain) Qty: 30 0RF penicillin V potassium 500 mg tablet 500 mg PO BID 10 Days Qty: 20 0RF penicillin V potassium 500 mg tablet 500 mg PO BID Qty: 20 0RF ibuprofen 600 mg tablet 600 mg PO TID PRN (Reason: pain) Qty: 14 0RF amoxicillin-pot clavulanate [Augmentin] 875-125 mg tablet 1 tab PO Q12H Qty: 20 0RF oxycodone 5 mg tablet 5 mg PO Q6H PRN (Reason: pain) Qty: 20 0RF Rx Instructions: Patient may request partial fill Attending Name Dr Ania Gay and BREANNA#: my BREANNA# [id number] guaifenesin 400 mg tablet 400 mg PO Q4H PRN (Reason: cough) Qty: 14 0RF
--- NOTE | 2022-10-30 19:20 | ED_ITS ---
HPI - Skin/Abscess/Foreign Bdy General Chief complaint: Skin/Abscess/Foreign Body Stated complaint: cyst on lower abd Time Seen by Provider: 10/30/22 19:07 Source: patient Mode of arrival: ambulatory Limitations: no limitations History of Present Illness HPI narrative: This is 27-year-old male presenting to the emergency with complaints of an abscess on the fold of his abdomen x3 days worsening. Patient tells me it started as a pimple, he picked at it, he tells me pus came out, since then it has become red, hot, tender to the touch. Patient does not have a history of MRSA. Denies fevers, chills, numbness, tingling, testicular pain or swelling. Has not been on p.o. antibiotics for this issue. Related Data Previous Rx's Medication Instructions Recorded ibuprofen 800 mg tablet 800 mg PO Q8H PRN pain #30 tabs 11/03/20 penicillin V potassium 500 mg 500 mg PO BID 10 days #20 tabs 11/03/20 tablet ibuprofen 600 mg tablet 600 mg PO TID PRN pain #14 tabs 12/29/20 penicillin V potassium 500 mg 500 mg PO BID #20 tabs 12/29/20 tablet gentamicin 0.3 % eye drops 1 drp ophthalmic-Right Q4H #5 mL 02/10/21 amoxicillin 875 mg-potassium 1 tab PO Q12H #20 tabs 06/12/21 clavulanate 125 mg tablet (Augmentin) oxycodone 5 mg tablet 5 mg PO Q6H PRN pain #20 tabs 06/12/21 guaifenesin 400 mg tablet 400 mg PO Q4H PRN cough #14 tabs 03/23/22 cephalexin 500 mg tablet 500 mg PO Q6H 10 days #40 tabs 10/30/22 doxycycline hyclate 100 mg capsule 100 mg PO BID 10 days #20 caps 10/30/22 ketorolac 10 mg tablet 10 mg PO TID PRN pain 5 days #15 10/30/22 tabs Allergies Allergy/AdvReac Type Severity Reaction Status Date / Time SEASONAL ALLERGIES Allergy Mild RUNNY NOSE Uncoded 03/23/22 22:35 SNEEZING pollen Allergy Unknown Sneezing Uncoded 03/23/22 22:35 Review of Systems Review of Systems: Constitutional : No Fever, No Chills, Cardiovascular : No Chest Pain, No SOB Respiratory : No Dyspnea Gastrointestinal : No abdominal pain Musculoskeletal : No Joint Swelling Skin : No rash, No skin laceration, + abscess Neuro : No Weakness, No Numbness Psych : No SI/HI Yes all other systems are reviewed and are negative [facility] Past Medical History Attestation statement: The following information was validated with the patient. Source: old records reviewed and nursing notes reviewed Medical History Patient denies medical problems Social History Social History Smoked in Last 30 Days: No Use of substances other than those prescribed or required for medical reasons: No Substance Use Type: Marijuana Advance Directives: No Advance Directives Information Provided: No Physical Exam Vital Signs: Vital Signs: Last Vital Signs Temp 97.4 F 10/30/22 17:24 Pulse 75 10/30/22 17:24 Resp 97 H 10/30/22 17:24 BP 143/86 H 10/30/22 17:24 BMI result Body Mass Index 31.3 vss Appearance: Alert.? Oriented X3.? No acute distress.? Head: Normocephalic, atraumatic, no step-offs or deformities Eyes: Pupils equal, round and reactive to light.? CVS: Normal heart rate and rhythm.? Pulses normal.? Respiratory: No respiratory distress.? Breath sounds normal.? Abdomen: Soft and nontender.? small 2 cm x 2 cm indurated area with overlying erythema and warmth, no fluctuance to the lower abd fold on the mons pubis at the 2 oclock position. Skin: Skin warm and dry.? Normal skin color.? Normal skin turgor.? Extremities: No lower extremity edema.? No calf ttp. 5/5 strength to bilateral upper and lower extremities. No inguinal adenopathy. Neuro: Oriented X 3.? No motor deficit.? No sensory deficit. CN 2-12 intact Course Reevaluation(s) Reevaluation #1: Patient will be discharged home on doxycycline Keflex. Advised to return in a week for wound check. Educated patient on diagnosis and treatment plan, answered all question, patient verbalizes understanding. At this time patient will be discharged home, advised to return with new or worsening symptoms. Educated on worrisome signs and symptoms and when to return. At this time I feel comfortable discharge home. Time: 19:25 Medical Decision Making Medical Decision Making [facility] Narrative: 192 This is a 27-year-old male presenting with abscess in the abdominal fold region times 3 days worsening. Physical examination with a small 2 cm x 2 cm indurated area with overlying erythema and warmth, no fluctuance to the lower abd fold on the mons pubis at the 2 oclock position. Vital signs stable. Likely forming abscess with overlying cellulitis. I do not suspect sepsis, necrotizing infection. History and physical exam not consistent with torsion No need for incision and drainage at this time as the area is indurated and there is no fluctuance, it appears as though the area has been draining on its own, patient does tell me he picked at it and it has been draining, educated on warm compresses to the area. Differential Diagnosis Differential Diagnoses: The differential diagnosis associated with the presentation includes Likely forming abscess with overlying cellulitis. I do not suspect sepsis, necrotizing infection. Admission/Observation Consideration of admission/observation: Escalation of care including admission/observation considered Core Measures AMI core measures followed: Yes Measure exclusions: not indicated Critical Care Time Critical Care Time Critical Care Time: No Discharge Plan Discharge Clinical Impression: Abscess of skin or subcutaneous tissue Patient Disposition: Home, Self-Care Additional Instructions: Take your medications as prescribed. If you were prescribed antibiotics today, it is important that you take your medication to their entirety, do not skip any doses, do not finish them early. Follow-up with your primary care provider this week. Return to the emergency department with new or worsening symptoms. Such as fevers, chills, chest pain, shortness of breath, nausea, vomiting, dizziness, headache, vision changes, lethargy In case of emergency call 911 Please return in 1 week for wound check or return sooner if new or worsening symptoms such as redness, swelling, discharge or severe pain at the site. Prescriptions: New doxycycline hyclate 100 mg capsule 100 mg PO BID 10 Days Qty: 20 0RF ketorolac 10 mg tablet 10 mg PO TID PRN (Reason: pain) 5 Days Qty: 15 0RF Rx Instructions: Tolerated IM in the department cephalexin 500 mg tablet 500 mg PO Q6H 10 Days Qty: 40 0RF No Action gentamicin 0.3 % drops 1 drp ophthalmic-Right Q4H Qty: 5 0RF ibuprofen 800 mg tablet 800 mg PO Q8H PRN (Reason: pain) Qty: 30 0RF penicillin V potassium 500 mg tablet 500 mg PO BID 10 Days Qty: 20 0RF penicillin V potassium 500 mg tablet 500 mg PO BID Qty: 20 0RF ibuprofen 600 mg tablet 600 mg PO TID PRN (Reason: pain) Qty: 14 0RF amoxicillin-pot clavulanate [Augmentin] 875-125 mg tablet 1 tab PO Q12H Qty: 20 0RF oxycodone 5 mg tablet 5 mg PO Q6H PRN (Reason: pain) Qty: 20 0RF Rx Instructions: Patient may request partial fill Attending Name Dr Ania Gay and BREANNA#: my BREANNA# [id number] guaifenesin 400 mg tablet 400 mg PO Q4H PRN (Reason: cough) Qty: 14 0RF Referrals: Physician,None [Primary Care Provider] - 2 days Stand Alone Forms: Work/School Release
[2022-10-30 19:33] VITALS: BP 120/67; PULSE 56; RESP 16; TEMP 36.3; O2SAT 97
--- NOTE | 2022-10-30 19:34 | MHC.EDTECH ---
patient vitals sign taken ,patient waiting for discharge paper work .
[2022-10-30] MEDS: Ketorolac Tromethamine 30 MG/ML VIAL IM (20:32)
== END 2022-10-30 20:37 | disposition home or self-care (01) ==
PROVIDERS: Emergency Provider Internal Medicine
DX: L02.211 Cutaneous abscess of abdominal wall (principal); F12.90 Cannabis use, unspecified, uncomplicated
CPT/HCPCS: 96372; 99284; J1885

== ENCOUNTER 2023-01-09 11:56 | Emergency (ER) | payer MEDICAID, SELFPAY ==
[2023-01-09 11:57] VITALS: BP 148/90; PULSE 85; RESP 18; TEMP 36.8; O2SAT 99; BMI 35.5
--- NOTE | 2023-01-09 11:58 | ED_ITS ---
HPI - General Adult General Chief complaint: General Medical <SONIA Landa - Last Filed: 01/09/23 12:38> Stated complaint: facial swelling <SONIA Landa Last Filed: 01/09/23 12:38> Time Seen by Provider: 01/09/23 11:59 <SONIA Landa Last Filed: 01/09/23 12:38> Source: patient <SONIA Landa Last Filed: 01/09/23 12:38> Mode of arrival: ambulatory <SONIA Landa Last Filed: 01/09/23 12:38> Limitations: no limitations <SONIA Landa Last Filed: 01/09/23 12:38> History of Present Illness HPI narrative: 27 yo male presents to the ER for evaluation of right sided facial swelling and upper dental pain for the last 2 days, acutely worsened overnight. He has no dentist. He report history of cavities and broken teeth in his upper right side. He has been here several times in the past for similar presentati ons. He reports pain with eating and opening his mouth. No fever or chills. No recent dental trauma. <SONIA Landa - Last Filed: 01/09/23 12:38> MD complaint: right sided facial pain <SONIA Landa Last Filed: 01/09/23 12:38> Onset (ago): day(s) (2) <SONIA Landa - Last Filed: 01/09/23 12:38> Location: face <SONIA Landa Last Filed: 01/09/23 12:38> Severity: severe <SONIA Landa Last Filed: 01/09/23 12:38> Severity scale (1-10): 10 <SONIA Landa Last Filed: 01/09/23 12:38> Quality: stabbing, aching and constant <SONIA Landa - Last Filed: 01/09/23 12:38> Pain Consistency: constant <SONIA Landa Last Filed: 01/09/23 12:38> Relieving factors: none <SONIA Landa Last Filed: 01/09/23 12:38> Exacerbating factors: eating <SONIA Landa - Last Filed: 01/09/23 12:38> Associated symptoms: denies other symptoms <SONIA Landa - Last Filed: 01/09/23 12:38> Treatments prior to arrival: none <SONIA Landa - Last Filed: 01/09/23 12:38> Related Data Home medications: Previous Rx's Medication Instructions Recorded ibuprofen 800 mg tablet 800 mg PO Q8H PRN pain #30 tabs 11/03/20 penicillin V potassium 500 mg 500 mg PO BID 10 days #20 tabs 11/03/20 tablet ibuprofen 600 mg tablet 600 mg PO TID PRN pain #14 tabs 12/29/20 penicillin V potassium 500 mg 500 mg PO BID #20 tabs 12/29/20 tablet gentamicin 0.3 % eye drops 1 drp ophthalmic-Right Q4H #5 mL 02/10/21 amoxicillin 875 mg-potassium 1 tab PO Q12H #20 tabs 06/12/21 clavulanate 125 mg tablet (Augmentin) oxycodone 5 mg tablet 5 mg PO Q6H PRN pain #20 tabs 06/12/21 guaifenesin 400 mg tablet 400 mg PO Q4H PRN cough #14 tabs 03/23/22 cephalexin 500 mg tablet 500 mg PO Q6H 10 days #40 tabs 10/30/22 doxycycline hyclate 100 mg capsule 100 mg PO BID 10 days #20 caps 10/30/22 ketorolac 10 mg tablet 10 mg PO TID PRN pain 5 days #15 10/30/22 tabs acetaminophen 500 mg tablet 1,000 mg PO Q6H PRN pain #30 tabs 01/09/23 (Tylenol Extra Strength) chlorhexidine gluconate 0.12 % 15 ml buccal BID #118 mL 01/09/23 mouthwash (Peridex) clindamycin HCl 300 mg capsule 300 mg PO Q6H 7 days #28 caps 01/09/23 hydrocodone 5 mg-acetaminophen 325 1 tab PO Q6H PRN severe pain 01/09/23 mg tablet (scale score 7-10) #8 tabs ibuprofen 800 mg tablet 800 mg PO Q8H PRN pain #30 tabs 01/09/23 <SONIA Landa Last Filed: 01/09/23 12:38> Allergies/adverse reactions: Allergies Allergy/AdvReac Type Severity Reaction Status Date / Time SEASONAL ALLERGIES Allergy Mild RUNNY NOSE Uncoded 03/23/22 22:35 SNEEZING pollen Allergy Unknown Sneezing Uncoded 03/23/22 22:35 <SONIA Landa - Last Filed: 01/09/23 12:38> Review of Systems Review of Systems: Yes all other systems are reviewed and are negative <SONIA Landa - Last Filed: 01/09/23 12:38> [facility] Past Medical History Medical History: Medical History Patient denies medical problems <SONIA Landa Last Filed: 01/09/23 12:38> Social History Social History: Social History Substance Use Type: Marijuana Advance Directives: No Advance Directives Information Provided: No <SONIA Landa - Last Filed: 01/09/23 12:38> Physical Exam ED Vital Signs: Vital Signs - 24 hr 01/09/23 11:57 Temperature 98.3 F Pulse Rate 85 Respiratory Rate 18 Blood Pressure 148/90 H Pulse Oximetry 99 Oxygen Delivery Method Nasal Cannula BMI result Body Mass Index 35.5 <SONIA Landa - Last Filed: 01/09/23 12:38> Vital Signs - 24 hr 01/09/23 11:57 Temperature 98.3 F Pulse Rate 85 Respiratory Rate 18 Blood Pressure 148/90 H Pulse Oximetry 99 Oxygen Delivery Method Nasal Cannula BMI result Body Mass Index 35.5 <SONIA Mendoza Last Filed: 01/09/23 12:03> Appearance: Alert. Oriented X3. No acute distress. HEENT: mild right sided facial swelling noted. right buccal area with tenderness and swelling. tooth #1 is broken with associated tenderness and gingival swelling, no palpable fluctuance. poor dentition. mild trismus. no swelling in the floor of the mouth. airway patent. no posterior pharyngeal swelling or erythema. CVS: Normal heart rate and rhythm. Pulses normal. Respiratory: No respiratory distress. Skin: Skin warm and dry. Normal skin color. Normal skin turgor. No rashes. Extremities: normal inspection Neuro: Oriented X 3. grossly normal, nonfocal <SONIA Landa Last Filed: 01/09/23 12:38> Course Course Course Narrative: This is an RME: Additional HPI, ROS, PE not included below will be deferred to primary provider. 27 year old male no medical history presents with right-sided facial/jaw swelling patient tells me this started 2 days ago with associated subjective fevers and chills. No recent dental work. Patient does tell me has cavities to his right upper teeth. On exam there is is right side facial pain. No pain with palpation of teeth. Plan emc <SONIA Mendoza Last Filed: 01/09/23 12:03> Medical Decision Making Medical Decision Making MDM Narrative: 27-year-old male presents the ER for evaluation of right-sided facial swelling and dental pain for the last 2 days. His chart was reviewed it appears a very similar situation in 2020 with the same right buccal tenderness. He was treated with Augmentin with improvement. will plan to treat with oral clindamycin, pain control, and provide dental referrals. Importance of close into follow-up was encouraged. Return precautions were discussed. Stable for discharge home. <SONIA Landa Last Filed: 01/09/23 12:38> Differential Diagnosis Differential Diagnoses: The differential diagnosis associated with the presentation includes <SONIA Landa Last Filed: 01/09/23 12:38> dental abscess, dental infection, broken to, toothache, facial abscess, cellulitis, no evidence of Mark's angina <SONIA Landa Last Filed: 01/09/23 12:38> External Record Review External record reviewed: Outpatient record <SONIA Landa Last Filed: 01/09/23 12:38> Tests considered The following testing was considered but not selected: CT scan of the soft tissues of the neck/facial bones were considered however deferred given acute onset, exam & presentation <SONIA Landa Last Filed: 01/09/23 12:38> Prescription Management I considered prescription management with: Pain Medication and Antibiotic <SONIA Landa Last Filed: 01/09/23 12:38> Chronic Conditions Patient?s care impacted by: Other ( poor dentition,) <SONIA Landa Last Filed: 01/09/23 12:38> Social Determinants Patient?s care significantly limited by Social Determinants of Health including: Other Social Determinant of Health ( lack of dental care) <SONIA Landa - Last Filed: 01/09/23 12:38> Critical Care Time Critical Care Time Critical Care Time: No <SONIA Landa - Last Filed: 01/09/23 12:38> Discharge Plan Discharge Clinical Impression: Dental abscess <SONIA Landa Last Filed: 01/09/23 12:38> Patient Disposition: Home, Self-Care <SONIA Landa Last Filed: 01/09/23 12:38> Instructions: Dental Abscess (ED) <SONIA Landa - Last Filed: 01/09/23 12:38> Additional Instructions: Take the prescribed antibiotic as directed. Complete the entire course and do not miss any doses. Start amalia. Take the prescribed Tylenol every 6 hours. Take the prescribed ibuprofen every 8 hours, take with food. Take the prescribed narcotic pain medication as needed for severe pain only. Do not drive after taking this medication. Follow-up with a dentist as soon as possible. If you develop new or worsening symptoms call 911 or come back to the ER for further evaluation. <SONIA Landa - Last Filed: 01/09/23 12:38> Prescriptions: New clindamycin HCl 300 mg capsule 300 mg PO Q6H 7 Days Qty: 28 0RF ibuprofen 800 mg tablet 800 mg PO Q8H PRN (Reason: pain) Qty: 30 0RF hydrocodone-acetaminophen 5-325 mg tablet 1 tab PO Q6H PRN (Reason: severe pain (scale score 7-10)) Qty: 8 0RF Rx Instructions: Partial Fill upon patient request. acetaminophen [Tylenol Extra Strength] 500 mg tablet 1,000 mg PO Q6H PRN (Reason: pain) Qty: 30 0RF chlorhexidine gluconate [Peridex] 0.12 % mouthwash 15 ml buccal BID Qty: 118 0RF No Action gentamicin 0.3 % drops 1 drp ophthalmic-Right Q4H Qty: 5 0RF ibuprofen 800 mg tablet 800 mg PO Q8H PRN (Reason: pain) Qty: 30 0RF penicillin V potassium 500 mg tablet 500 mg PO BID 10 Days Qty: 20 0RF penicillin V potassium 500 mg tablet 500 mg PO BID Qty: 20 0RF ibuprofen 600 mg tablet 600 mg PO TID PRN (Reason: pain) Qty: 14 0RF amoxicillin-pot clavulanate [Augmentin] 875-125 mg tablet 1 tab PO Q12H Qty: 20 0RF oxycodone 5 mg tablet 5 mg PO Q6H PRN (Reason: pain) Qty: 20 0RF Rx Instructions: Patient may request partial fill Attending Name Dr Ania Gay and BREANNA#: my BREANNA# [id number] guaifenesin 400 mg tablet 400 mg PO Q4H PRN (Reason: cough) Qty: 14 0RF doxycycline hyclate 100 mg capsule 100 mg PO BID 10 Days Qty: 20 0RF ketorolac 10 mg tablet 10 mg PO TID PRN (Reason: pain) 5 Days Qty: 15 0RF Rx Instructions: Tolerated IM in the department cephalexin 500 mg tablet 500 mg PO Q6H 10 Days Qty: 40 0RF <SONIA Landa - Last Filed: 01/09/23 12:38> Referrals: [facility] [Primary Care Provider] - <SONIA Landa - Last Filed: 01/09/23 12:38>
[2023-01-09] MEDS: Ketorolac Tromethamine 30 MG/ML VIAL IM (12:52)
== END 2023-01-09 12:53 | disposition home or self-care (01) ==
PROVIDERS: Emergency Provider Emergency Medicine
DX: K04.7 Periapical abscess without sinus (principal); R50.9 Fever, unspecified; Z79.899 Other long term (current) drug therapy
CPT/HCPCS: 96372; 99283; 99284; J1885

== ENCOUNTER 2023-01-12 17:46 | Emergency (ER) | payer MEDICAID, SELFPAY ==
--- NOTE | ~2023-01-12 | CT_ITS ---
EXAMINATION: CT FACIAL BONES WITH CONTRAST CLINICAL INFORMATION: Right facial swelling COMPARISON: None available. TECHNIQUE: Multidetector volumetric imaging of the facial bones performed after administration of 85 mL of Omnipaque 350 IV contrast. Coronal and sagittal reformatted images are obtained and reviewed. This CT examination was performed using dose optimization techniques as appropriate, variously including the following: *Automated exposure control *Adjustment of mA and/or kV according to patient size (this includes techniques or standardized protocols for targeted exams where dose is matched to indication/reason for exam; i.e. extremities or head) *Use of iterative reconstruction technique DLP: 501 mGy-cm FINDINGS: Inflammatory stranding overlies the right zygomatic arch. Anterior to the right parotid gland along the superficial margin of the right masseter muscle there is a fluid collection measuring 3.5 x 3.2 x 3.2 cm. There is a rim of enhancement. A few calcifications are seen associated with this collection. There is thickening of the associated platysma muscle. Mildly prominent submandibular lymph nodes are likely reactive. No acute maxillofacial fractures are seen. The pterygoid plates are intact. The lamina papyracea are intact. The zygomatic arches are intact. The orbital rims are intact. The nasal bone is intact. The frontal, maxillary, ethmoid, and sphenoid sinuses are well aerated. Partially opacified left mastoid air cells. The uncinate process is normal bilaterally. The infundibula and middle meati are patent. The nasal septum is midline. The mandibular heads are well-seated in the condylar fossa. The orbits demonstrate a normal appearance bilaterally. The globes are intact, and there are no suspicious findings to suggest retrobulbar hemorrhage. The visualized intracranial structures show no acute abnormality. CT/CT facial bones w IV con IMPRESSION: Rim-enhancing fluid collection along the superficial margin of the right masseter muscle with surrounding inflammatory stranding. This is concerning for abscess.
[2023-01-12 18:46] VITALS: BP 143/80; PULSE 54; RESP 20; TEMP 36.9; O2SAT 99; BMI 34.4
--- NOTE | 2023-01-12 18:49 | ED.DENTAL ---
HPI - Dental/Oral General Chief complaint: Dental/Oral <SONIA Landa - Last Filed: 01/12/23 18:52> Stated complaint: swollen face <SONIA Landa - Last Filed: 01/12/23 18:52> Time Seen by Provider: 01/12/23 20:26 <SONIA Landa - Last Filed: 01/12/23 18:52> Source: patient <SONIA Mendoza - Last Filed: 01/13/23 00:18> Mode of arrival: ambulatory <SONIA Menodza - Last Filed: 01/13/23 00:18> Limitations: no limitations <SONIA Mendoza - Last Filed: 01/13/23 00:18> History of Present Illness HPI Narrative: ?27 yo male who denies PMHX presents to the ER for evaluation of right sided facial swelling and upper dental pain for the last 5 days, acutely worsening over the past few days. He has no dentist. He report history of cavities and broken teeth in his upper right side. He has been here several times in the past for similar presentations last seen on 01/09/23. He reports pain with eating and opening his mouth. No fever or chills. No recent dental trauma. Was seen here in the ED on 01/09/2023 and was diagnosed w/ dental abcess was dc home on clindamycn hcl 300 mg po Q6H for 7 days still taking. Denies changes in voice, drooling and neck pain <SONIA Mendoza Last Filed: 01/13/23 00:18> Related Data Home medications: Previous Rx's Medication Instructions Recorded ibuprofen 800 mg tablet 800 mg PO Q8H PRN pain #30 tabs 11/03/20 penicillin V potassium 500 mg 500 mg PO BID 10 days #20 tabs 11/03/20 tablet ibuprofen 600 mg tablet 600 mg PO TID PRN pain #14 tabs 12/29/20 penicillin V potassium 500 mg 500 mg PO BID #20 tabs 12/29/20 tablet gentamicin 0.3 % eye drops 1 drp ophthalmic-Right Q4H #5 mL 02/10/21 amoxicillin 875 mg-potassium 1 tab PO Q12H #20 tabs 06/12/21 clavulanate 125 mg tablet (Augmentin) oxycodone 5 mg tablet 5 mg PO Q6H PRN pain #20 tabs 06/12/21 guaifenesin 400 mg tablet 400 mg PO Q4H PRN cough #14 tabs 03/23/22 cephalexin 500 mg tablet 500 mg PO Q6H 10 days #40 tabs 10/30/22 doxycycline hyclate 100 mg capsule 100 mg PO BID 10 days #20 caps 10/30/22 ketorolac 10 mg tablet 10 mg PO TID PRN pain 5 days #15 10/30/22 tabs acetaminophen 500 mg tablet 1,000 mg PO Q6H PRN pain #30 tabs 01/09/23 (Tylenol Extra Strength) chlorhexidine gluconate 0.12 % 15 ml buccal BID #118 mL 01/09/23 mouthwash (Peridex) clindamycin HCl 300 mg capsule 300 mg PO Q6H 7 days #28 caps 01/09/23 hydrocodone 5 mg-acetaminophen 325 1 tab PO Q6H PRN severe pain 01/09/23 mg tablet (scale score 7-10) #8 tabs ibuprofen 800 mg tablet 800 mg PO Q8H PRN pain #30 tabs 01/09/23 <SONIA Landa - Last Filed: 01/12/23 18:52> Allergies/adverse reactions: Allergies Allergy/AdvReac Type Severity Reaction Status Date / Time SEASONAL ALLERGIES Allergy Mild RUNNY NOSE Uncoded 03/23/22 22:35 SNEEZING pollen Allergy Unknown Sneezing Uncoded 03/23/22 22:35 <SONIA Landa - Last Filed: 01/12/23 18:52> Review of Systems Review of Systems: Constitutional : No Weight loss, No Fever, No Chills, No Fatigue, No Malaise ENT/Mouth : No sore throat, No Rhinorrhea, + facial pain and swelling Eyes: No Eye Pain, No Swelling, No Redness Cardiovascular : No Chest Pain, No SOB, No Dyspnea on Exertion, No Orthopnea, No Edema, No Palpitations Respiratory : No Cough, No Sputum, No Wheezing Gastrointestinal : No Nausea, No Vomiting, No Diarrhea, No Constipation, No abdominal Pain, No Hematochezia, No Melena Genitourinary : No Dysuria, No Urinary Frequency, No Hematuria, Musculoskeletal : No joint pain, No Myalgias, No Joint Swelling Skin : No Skin Lesions, No rash Neuro : No Weakness, No Numbness, No Dizziness, No Headache Psych : No Anxiety/Panic, No Depression All other systems reviewed and are negative <SONIA Mendoza - Last Filed: 01/13/23 00:18> Yes all other systems are reviewed and are negative <SONIA Mendoza - Last Filed: 01/13/23 00:18> [facility] Past Medical History Attestation statement: The following information was validated with the patient. <SONIA Mendoza - Last Filed: 01/13/23 00:18> Source: old records reviewed and nursing notes reviewed <SONIA Mendoza - Last Filed: 01/13/23 00:18> Medical History: Medical History Patient denies medical problems <SONIA Landa - Last Filed: 01/12/23 18:52> Social History Social History: Social History Smoked in Last 30 Days: Yes Use of substances other than those prescribed or required for medical reasons: Yes Substance Use Type: Marijuana Advance Directives: No Advance Directives Information Provided: No <SONIA Landa - Last Filed: 01/12/23 18:52> Physical Exam Vital Signs: Vital Signs: Last Vital Signs Temp 99.4 F 01/12/23 23:21 Pulse 64 01/12/23 23:21 Resp 16 01/12/23 23:21 BP 132/98 H 01/12/23 23:21 Pulse Ox 98 01/12/23 23:21 O2 Del Method Room Air 01/12/23 23:21 BMI result Body Mass Index 34.4 <SONIA Landa - Last Filed: 01/12/23 18:52> Vital Signs: Last Vital Signs Temp 99.4 F 01/12/23 23:21 Pulse 64 01/12/23 23:21 Resp 16 01/12/23 23:21 BP 132/98 H 01/12/23 23:21 Pulse Ox 98 01/12/23 23:21 O2 Del Method Room Air 01/12/23 23:21 BMI result Body Mass Index 34.4 Vital signs stable <SONIA Mendoza - Last Filed: 01/13/23 00:18> Appearance: Alert.? Oriented X3.? No acute distress.? Head: Normocephalic, atraumatic, no step-offs or deformities Eyes: Pupils equal, round and reactive to light.? ENT: + ? right sided facial swelling noted with tenderness to palpation overlying entire right side of cheek. right buccal area with tenderness and swelling. tooth #1 is broken with associated tenderness and gingival swelling slight palpable fluctuance. poor dentition thorughout with halatosis . + trismus. no swelling in the floor of the mouth. airway patent. no posterior pharyngeal swelling or erythema. Neck: Normal inspection.? Neck supple.? CVS: Normal heart rate and rhythm.? Pulses normal.? Respiratory: No respiratory distress.? Breath sounds normal.? Abdomen: Soft and nontender.? Skin: Skin warm and dry.? Normal skin color.? Normal skin turgor.? Extremities: No lower extremity edema.? No calf ttp. 5/5 strength to bilateral upper and lower extremities Back: No midline tenderness, no C-spine tenderness, full range of motion, no CVA tenderness bilaterally Neuro: Oriented X 3.? No motor deficit.? No sensory deficit. CN 2-12 intact <SONIA Mendoza Last Filed: 01/13/23 00:18> Course Course Course Narrative: RME - 27 yo male presents to the ER for evaluation of worsening right sided facial swelling and gum infection. Seen here on 01/09 and started on abx and pain control. +facial swelling and trismus, extremely tender buccal mucosa unable to examine the teeth Plan: CT facial bones and labs, pain control <SONIA Landa - Last Filed: 01/12/23 18:52> Reevaluation(s) Reevaluation #1: CBC with leukocytosis of 18.6. Chemistry unremarkable. Normal lactic. CRP 13.74, ESR 31. Patient complains of significant pain at this time. CT of face demonstrating rim enhancing fluid collection along the superficial margin of the right masseter muscle with surrounding inflammatory stranding which is concerning for abscess. <SONIA Mendoza Last Filed: 01/13/23 00:18> Time: 23:18 <SONIA Mendoza - Last Filed: 01/13/23 00:18> Reevaluation #2: [facility] and [facility] closed to transfers for OMFS. Call out to [facility] to see if they have open beds for OMFS in [place] or [place]. <SONIA Mendoza - Last Filed: 01/13/23 00:18> Time: 23:20 <SONIA Mendoza - Last Filed: 01/13/23 00:18> Reevaluation #3: [facility] closed at this time. No OMF coverage. Call out to [facility]. <SONIA Mendoza - Last Filed: 01/13/23 00:18> Time: 23:40 <SONIA Mendoza - Last Filed: 01/13/23 00:18> Additional Reevaluation(s): [facility] will be [facility] via ambulance. Accepting Dr. Doty in ED. Patient agreeable to transfer this far via ambulance. <SONIA Mendoza - Last Filed: 01/13/23 00:18> Medications Administered Discontinued Medications Generic Name Dose Route Start Last Admin Trade Name Freq PRN Reason Stop Dose Admin Dexamethasone Sodium Phosphate 10 mg 01/12/23 20:44 01/12/23 21:03 Dexamethasone Sod Phosphate 10 Mg/Ml Vial IVPUSH 01/12/23 20:45 10 mg ONCE ONE Administration Piperacillin Sod/Tazobactam 50 mls @ 100 mls/hr 01/12/23 20:44 01/12/23 22:43 Sod 3.375 gm/ Sodium Chloride IV 01/12/23 21:13 Infused ONCE ONE Infusion Sodium Chloride 1,000 mls @ 999 mls/hr 01/12/23 20:45 01/12/23 22:43 Ns IV 01/12/23 21:45 Infused .Q1H1M ANGEL Infusion Sodium Chloride 1,000 mls @ 999 mls/hr 01/12/23 20:45 01/12/23 23:50 Ns IV 01/12/23 21:45 Infused .Q1H1M ANGEL Infusion Iohexol 100 ml 01/12/23 21:55 01/12/23 21:55 Iohexol 350 Mg/Ml 100 Ml Infus..Btl IV 01/12/23 21:56 85 ml ONCE ONE Administration Morphine Sulfate 4 mg 01/12/23 18:47 01/12/23 21:02 Morphine Sulfate 4 Mg/Ml Cartridge IVPUSH 01/12/23 18:48 4 mg ONCE ONE Administration Protocol Morphine Sulfate 4 mg 01/12/23 23:21 01/12/23 23:36 Morphine Sulfate 4 Mg/Ml Cartridge IVPUSH 01/12/23 23:22 4 mg ONCE ONE Administration Protocol <SONIA Landa - Last Filed: 01/12/23 18:52> Medications Administered Discontinued Medications Generic Name Dose Route Start Last Admin Trade Name Freq PRN Reason Stop Dose Admin Dexamethasone Sodium Phosphate 10 mg 01/12/23 20:44 01/12/23 21:03 Dexamethasone Sod Phosphate 10 Mg/Ml Vial IVPUSH 01/12/23 20:45 10 mg ONCE ONE Administration Piperacillin Sod/Tazobactam 50 mls @ 100 mls/hr 01/12/23 20:44 01/12/23 22:43 Sod 3.375 gm/ Sodium Chloride IV 01/12/23 21:13 Infused ONCE ONE Infusion Sodium Chloride 1,000 mls @ 999 mls/hr 01/12/23 20:45 01/12/23 22:43 Ns IV 01/12/23 21:45 Infused .Q1H1M ANGEL Infusion Sodium Chloride 1,000 mls @ 999 mls/hr 01/12/23 20:45 01/12/23 23:50 Ns IV 01/12/23 21:45 Infused .Q1H1M ANGEL Infusion Iohexol 100 ml 01/12/23 21:55 01/12/23 21:55 Iohexol 350 Mg/Ml 100 Ml Infus..Btl IV 01/12/23 21:56 85 ml ONCE ONE Administration Morphine Sulfate 4 mg 01/12/23 18:47 01/12/23 21:02 Morphine Sulfate 4 Mg/Ml Cartridge IVPUSH 01/12/23 18:48 4 mg ONCE ONE Administration Protocol Morphine Sulfate 4 mg 01/12/23 23:21 01/12/23 23:36 Morphine Sulfate 4 Mg/Ml Cartridge IVPUSH 01/12/23 23:22 4 mg ONCE ONE Administration Protocol <SONIA Mendoza Last Filed: 01/13/23 00:18> Medical Decision Making Medical Decision Making [facility] Narrative: 2030 27-year-old male presents the ER for evaluation of right-sided facial swelling and dental pain for the last 5 days, was seen here on 01/09/23 dc on clinda however not improving.? His chart was reviewed it appears a very similar situation in 2020 with the same right buccal tenderness. Significant right sided facial swelling noted with tenderness to palpation overlying entire right side of cheek. right buccal area with tenderness and swelling. tooth #1 is broken with associated tenderness and gingival swelling slight palpable fluctuance. poor dentition thorughout with halatosis . + trismus. no swelling in the floor of the mouth. airway patent. no posterior pharyngeal swelling or erythema. Concerns for worsening dental abscess versus abscess to muscle or cheek not responding to antibiotics. No signs of airway compromise. No signs of Mrak's, peritonsillar retropharyngeal abscess. Plan labs, imaging, blood cultures, lactic acid. <SONIA Mendoza Last Filed: 01/13/23 00:18> Differential Diagnosis Differential Diagnoses: The differential diagnosis associated with the presentation includes <SONIA Mendoza Last Filed: 01/13/23 00:18> Concerns for worsening dental abscess versus abscess to muscle or cheek not responding to antibiotics. No signs of airway compromise. No signs of Mark's, peritonsillar retropharyngeal abscess. <SONIA Mendoza Last Filed: 01/13/23 00:18> Admission/Observation Consideration of admission/observation: Escalation of care including admission/observation considered <SONIA Mendoza Last Filed: 01/13/23 00:18> Lab Data [facility] Lab Attestation statement: I reviewed the patient's lab results. <SONIA Mendoza Last Filed: 01/13/23 00:18> Result Diagrams: 01/12/23 18:56 01/12/23 18:56 <SONIA Landa Last Filed: 01/12/23 18:52> Labs: Lab Results 01/12/23 01/12/23 01/12/23 Range/Units 18:56 18:56 18:56 WBC 18.6 H (4.8-10.8) X10*3/uL RBC 4.95 (4.60-5.80) X10*6/uL Hgb 14.6 (14.0-18.0) g/dl Hct 43.6 (42.0-52.0) % MCV 88.1 (80.0-98.0) fL MCH 29.5 (27.0-33.0) pg MCHC 33.5 (31.0-36.0) g/dl RDW 12.8 (11.0-16.0) % Plt Count 296 (160-400) X10*3/uL MPV 10.9 (9.4-12.4) fL Immature Gran % (Auto) 0.4 (0.0-0.4) % Neut % (Auto) 82.7 H (45-73) % Lymph % (Auto) 7.6 L (20-40) % Owen % (Auto) 8.7 (2-11) % Eos % (Auto) 0.3 (0-4) % Baso % (Auto) 0.3 (0-2) % Lymph # (Auto) 1.4 (1.2-4.9) X10*3/uL Owen # (Auto) 1.6 H (0.1-1.2) X10*3/uL Eos # (Auto) 0.1 (0.0-0.4) X10*3/uL Baso # (Auto) 0.1 (0.0-0.2) X10*3/uL Abs Immat Gran (auto) 0.07 H (0.00-0.03) X10*3/uL Absolute Neuts (auto) 15.4 H (2.0-8.3) x10*3/uL Absolute Nucleated RBC 0.000 (0.0-0.012) X10*3/uL Nucleated RBC % (auto) 0.0 (0.0-0.2) /100WBC Smear Tech's Comments VERIFIED ESR (0-15) MM/HR Sodium 142 (135-145) mmol/L Potassium 3.8 (3.3-5.1) mmol/L Chloride 102 (96-108) mmol/L Carbon Dioxide 26 (22-29) mmol/L Anion Gap 18 (12-20) BUN 10 (9-16) mg/dL Creatinine 0.86 (0.5-1.4) mg/dL Estim Creat Clear Calc 146.5 Estimated GFR > 60 Random Glucose 102 (60-115) mg/dL Lactic Acid 0.9 (0.5-2.0) mmol/L Calcium 9.6 (8.4-10.2) mg/dL Magnesium 2.3 (1.6-2.6) mg/dL Total Bilirubin 0.9 (0.0-1.0) mg/dL Direct Bilirubin 0.4 (0.0-0.5) mg/dL AST 15 (5-37) U/L ALT 17 (0-40) U/L Alkaline Phosphatase 102 (39-117) U/L C-Reactive Protein 13.74 H (< or = 0.50) mg/dL Total Protein 7.6 (6.5-8.0) g/dL Albumin 4.6 (3.5-5.0) g/dL COVID-19 ([place]) (Negative) COVID-19 Clin Com 01/12/23 01/12/23 Range/Units 18:56 23:23 WBC (4.8-10.8) X10*3/uL RBC (4.60-5.80) X10*6/uL Hgb (14.0-18.0) g/dl Hct (42.0-52.0) % MCV (80.0-98.0) fL MCH (27.0-33.0) pg MCHC (31.0-36.0) g/dl RDW (11.0-16.0) % Plt Count (160-400) X10*3/uL MPV (9.4-12.4) fL Immature Gran % (Auto) (0.0-0.4) % Neut % (Auto) (45-73) % Lymph % (Auto) (20-40) % Owen % (Auto) (2-11) % Eos % (Auto) (0-4) % Baso % (Auto) (0-2) % Lymph # (Auto) (1.2-4.9) X10*3/uL Owen # (Auto) (0.1-1.2) X10*3/uL Eos # (Auto) (0.0-0.4) X10*3/uL Baso # (Auto) (0.0-0.2) X10*3/uL Abs Immat Gran (auto) (0.00-0.03) X10*3/uL Absolute Neuts (auto) (2.0-8.3) x10*3/uL Absolute Nucleated RBC (0.0-0.012) X10*3/uL Nucleated RBC % (auto) (0.0-0.2) /100WBC Smear Tech's Comments ESR 31 H (0-15) MM/HR Sodium (135-145) mmol/L Potassium (3.3-5.1) mmol/L Chloride (96-108) mmol/L Carbon Dioxide (22-29) mmol/L Anion Gap (12-20) BUN (9-16) mg/dL Creatinine (0.5-1.4) mg/dL Estim Creat Clear Calc Estimated GFR Random Glucose (60-115) mg/dL Lactic Acid (0.5-2.0) mmol/L Calcium (8.4-10.2) mg/dL Magnesium (1.6-2.6) mg/dL Total Bilirubin (0.0-1.0) mg/dL Direct Bilirubin (0.0-0.5) mg/dL AST (5-37) U/L ALT (0-40) U/L Alkaline Phosphatase (39-117) U/L C-Reactive Protein (< or = 0.50) mg/dL Total Protein (6.5-8.0) g/dL Albumin (3.5-5.0) g/dL COVID-19 ([place]) Negative (Negative) COVID-19 Clin Com See Note <SONIA Landa - Last Filed: 01/12/23 18:52> Lab Results 01/12/23 01/12/23 01/12/23 Range/Units 18:56 18:56 18:56 WBC 18.6 H (4.8-10.8) X10*3/uL RBC 4.95 (4.60-5.80) X10*6/uL Hgb 14.6 (14.0-18.0) g/dl Hct 43.6 (42.0-52.0) % MCV 88.1 (80.0-98.0) fL MCH 29.5 (27.0-33.0) pg MCHC 33.5 (31.0-36.0) g/dl RDW 12.8 (11.0-16.0) % Plt Count 296 (160-400) X10*3/uL MPV 10.9 (9.4-12.4) fL Immature Gran % (Auto) 0.4 (0.0-0.4) % Neut % (Auto) 82.7 H (45-73) % Lymph % (Auto) 7.6 L (20-40) % Owen % (Auto) 8.7 (2-11) % Eos % (Auto) 0.3 (0-4) % Baso % (Auto) 0.3 (0-2) % Lymph # (Auto) 1.4 (1.2-4.9) X10*3/uL Owen # (Auto) 1.6 H (0.1-1.2) X10*3/uL Eos # (Auto) 0.1 (0.0-0.4) X10*3/uL Baso # (Auto) 0.1 (0.0-0.2) X10*3/uL Abs Immat Gran (auto) 0.07 H (0.00-0.03) X10*3/uL Absolute Neuts (auto) 15.4 H (2.0-8.3) x10*3/uL Absolute Nucleated RBC 0.000 (0.0-0.012) X10*3/uL Nucleated RBC % (auto) 0.0 (0.0-0.2) /100WBC Smear Tech's Comments VERIFIED ESR (0-15) MM/HR Sodium 142 (135-145) mmol/L Potassium 3.8 (3.3-5.1) mmol/L Chloride 102 (96-108) mmol/L Carbon Dioxide 26 (22-29) mmol/L Anion Gap 18 (12-20) BUN 10 (9-16) mg/dL Creatinine 0.86 (0.5-1.4) mg/dL Estim Creat Clear Calc 146.5 Estimated GFR > 60 Random Glucose 102 (60-115) mg/dL Lactic Acid 0.9 (0.5-2.0) mmol/L Calcium 9.6 (8.4-10.2) mg/dL Magnesium 2.3 (1.6-2.6) mg/dL Total Bilirubin 0.9 (0.0-1.0) mg/dL Direct Bilirubin 0.4 (0.0-0.5) mg/dL AST 15 (5-37) U/L ALT 17 (0-40) U/L Alkaline Phosphatase 102 (39-117) U/L C-Reactive Protein 13.74 H (< or = 0.50) mg/dL Total Protein 7.6 (6.5-8.0) g/dL Albumin 4.6 (3.5-5.0) g/dL COVID-19 ([place]) (Negative) COVID-19 Clin Com 01/12/23 01/12/23 Range/Units 18:56 23:23 WBC (4.8-10.8) X10*3/uL RBC (4.60-5.80) X10*6/uL Hgb (14.0-18.0) g/dl Hct (42.0-52.0) % MCV (80.0-98.0) fL MCH (27.0-33.0) pg MCHC (31.0-36.0) g/dl RDW (11.0-16.0) % Plt Count (160-400) X10*3/uL MPV (9.4-12.4) fL Immature Gran % (Auto) (0.0-0.4) % Neut % (Auto) (45-73) % Lymph % (Auto) (20-40) % Owen % (Auto) (2-11) % Eos % (Auto) (0-4) % Baso % (Auto) (0-2) % Lymph # (Auto) (1.2-4.9) X10*3/uL Owen # (Auto) (0.1-1.2) X10*3/uL Eos # (Auto) (0.0-0.4) X10*3/uL Baso # (Auto) (0.0-0.2) X10*3/uL Abs Immat Gran (auto) (0.00-0.03) X10*3/uL Absolute Neuts (auto) (2.0-8.3) x10*3/uL Absolute Nucleated RBC (0.0-0.012) X10*3/uL Nucleated RBC % (auto) (0.0-0.2) /100WBC Smear Tech's Comments ESR 31 H (0-15) MM/HR Sodium (135-145) mmol/L Potassium (3.3-5.1) mmol/L Chloride (96-108) mmol/L Carbon Dioxide (22-29) mmol/L Anion Gap (12-20) BUN (9-16) mg/dL Creatinine (0.5-1.4) mg/dL Estim Creat Clear Calc Estimated GFR Random Glucose (60-115) mg/dL Lactic Acid (0.5-2.0) mmol/L Calcium (8.4-10.2) mg/dL Magnesium (1.6-2.6) mg/dL Total Bilirubin (0.0-1.0) mg/dL Direct Bilirubin (0.0-0.5) mg/dL AST (5-37) U/L ALT (0-40) U/L Alkaline Phosphatase (39-117) U/L C-Reactive Protein (< or = 0.50) mg/dL Total Protein (6.5-8.0) g/dL Albumin (3.5-5.0) g/dL COVID-19 ([place]) Negative (Negative) COVID-19 Clin Com See Note <SONIA Mendoza - Last Filed: 01/13/23 00:18> Independent Interpretation I performed an independent interpretation of an: CT Scan (CT/CT facial bones w IV con IMPRESSION: Rim-enhancing fluid collection along the superficial margin of the right masseter muscle with surrounding inflammatory stranding. This is concerning for abscess. ) <SONIA Mendoza Last Filed: 01/13/23 00:18> Radiology Impression Discussion of test interpretation with radiology: I have reviewed the radiologist's reading. <SONIA Mendoza - Last Filed: 01/13/23 00:18> External Record Review External record reviewed: Inpatient record, Office record, Outpatient record, Prior outpatient labs, Prior outpatient radiology, Primary care record and Outside ED record <SONIA Mendoza Last Filed: 01/13/23 00:18> Social Determinants Patient?s care significantly limited by Social Determinants of Health including: Other Social Determinant of Health (Poor dentition ) <SONIA Mendoza Last Filed: 01/13/23 00:18> Core Measures AMI core measures followed: Yes <SONIA Mendoza - Last Filed: 01/13/23 00:18> Measure exclusions: not indicated <SONIA Mendoza Last Filed: 01/13/23 00:18> Critical Care Time Critical Care Time Critical Care Time: Yes <SONIA Mendoza Last Filed: 01/13/23 00:18> Total Critical Care Time: 60 <SONIA Mendoza - Last Filed: 01/13/23 00:18> Attestation: I attest to this time spent taking care of the patient, obtaining history, physical, reviewing labs, imaging, speaking to my attending, speaking to specialist. <SONIA Mendoza - Last Filed: 01/13/23 00:18> Discharge Plan Discharge Clinical Impression: Abscess of external cheek, right, Dental caries, Right facial pain <SONIA Landa Last Filed: 01/12/23 18:52> Patient Disposition: [facility] <SONIA Landa - Last Filed: 01/12/23 18:52> Transfer Details: [facility] ED Dr. Doty <SONIA Landa - Last Filed: 01/12/23 18:52> [facility] ED Dr. Doty <SONIA Mendoza - Last Filed: 01/13/23 00:18> Prescriptions: No Action gentamicin 0.3 % drops 1 drp ophthalmic-Right Q4H Qty: 5 0RF ibuprofen 800 mg tablet 800 mg PO Q8H PRN (Reason: pain) Qty: 30 0RF penicillin V potassium 500 mg tablet 500 mg PO BID 10 Days Qty: 20 0RF penicillin V potassium 500 mg tablet 500 mg PO BID Qty: 20 0RF ibuprofen 600 mg tablet 600 mg PO TID PRN (Reason: pain) Qty: 14 0RF amoxicillin-pot clavulanate [Augmentin] 875-125 mg tablet 1 tab PO Q12H Qty: 20 0RF oxycodone 5 mg tablet 5 mg PO Q6H PRN (Reason: pain) Qty: 20 0RF Rx Instructions: Patient may request partial fill Attending Name Dr Ania Gay and BREANNA#: my BREANNA# [id number] guaifenesin 400 mg tablet 400 mg PO Q4H PRN (Reason: cough) Qty: 14 0RF doxycycline hyclate 100 mg capsule 100 mg PO BID 10 Days Qty: 20 0RF ketorolac 10 mg tablet 10 mg PO TID PRN (Reason: pain) 5 Days Qty: 15 0RF Rx Instructions: Tolerated IM in the department cephalexin 500 mg tablet 500 mg PO Q6H 10 Days Qty: 40 0RF clindamycin HCl 300 mg capsule 300 mg PO Q6H 7 Days Qty: 28 0RF ibuprofen 800 mg tablet 800 mg PO Q8H PRN (Reason: pain) Qty: 30 0RF hydrocodone-acetaminophen 5-325 mg tablet 1 tab PO Q6H PRN (Reason: severe pain (scale score 7-10)) Qty: 8 0RF Rx Instructions: Partial Fill upon patient request. acetaminophen [Tylenol Extra Strength] 500 mg tablet 1,000 mg PO Q6H PRN (Reason: pain) Qty: 30 0RF chlorhexidine gluconate [Peridex] 0.12 % mouthwash 15 ml buccal BID Qty: 118 0RF <SONIA Landa - Last Filed: 01/12/23 18:52>
[2023-01-12 19:04] LABS: Basophils Absolute Auto 0.1 X10*3/uL (0.0-0.2); Basophils Percent Auto 0.3 % (0-2); Eosinophils Absolute Auto 0.1 X10*3/uL (0.0-0.4); Eosinophils Percent Auto 0.3 % (0-4); Hematocrit 43.6 % (42.0-52.0); Hemoglobin 14.6 g/dl (14.0-18.0); Imm Gran Abs Auto 0.07 X10*3/uL (0.00-0.03); Imm Gran Pct Auto 0.4 % (0.0-0.4); Lymphocytes Absolute Auto 1.4 X10*3/uL (1.2-4.9); Lymphocytes Percent Auto 7.6 % (20-40); MANUAL DIFF FLAG SCAN; Mean Corpuscular HGB Conc 33.5 g/dl (31.0-36.0); Mean Corpuscular Hemoglobin 29.5 pg (27.0-33.0); Mean Corpuscular Volume 88.1 fL (80.0-98.0); Mean Platelet Volume 10.9 fL (9.4-12.4); Monocytes Absolute Auto 1.6 X10*3/uL (0.1-1.2); Monocytes Percent Auto 8.7 % (2-11); Neutrophils Absolute Auto 15.4 x10*3/uL (2.0-8.3); Neutrophils Percent Auto 82.7 % (45-73); Platelet Count 296 X10*3/uL (160-400); Red Blood Count 4.95 X10*6/uL (4.60-5.80); Red Cell Distribution Width 12.8 % (11.0-16.0); SCAN SMEAR FLAG 1; White Blood Count 18.6 X10*3/uL (4.8-10.8)
[2023-01-12 19:20] LABS: Lactic Acid 0.9 mmol/L (0.5-2.0)
[2023-01-12 19:25] LABS: Alanine Aminotransferase 17 U/L (0-40); Albumin Level 4.6 g/dL (3.5-5.0); Alkaline Phosphatase 102 U/L (39-117); Anion Gap 18 (12-20); Aspartate Amino Transferase 15 U/L (5-37); Bilirubin Direct 0.4 mg/dL (0.0-0.5); Bilirubin Total 0.9 mg/dL (0.0-1.0); Blood Urea Nitrogen 10 mg/dL (9-16); C Reactive Protein 13.74 mg/dL (< or = 0.50); Calcium 9.6 mg/dL (8.4-10.2); Carbon Dioxide 26 mmol/L (22-29); Chloride 102 mmol/L (96-108); Creatinine Clr Calc Pharmacy 146.5; Estimated Glomerular Filt Rate > 60; Glucose Random 102 mg/dL (60-115); Magnesium 2.3 mg/dL (1.6-2.6); Potassium 3.8 mmol/L (3.3-5.1); Sodium 142 mmol/L (135-145); Total Protein 7.6 g/dL (6.5-8.0)
[2023-01-12 19:29] LABS: SLIDE REVIEW VERIFIED
[2023-01-12 20:11] VITALS: BP 146/70; PULSE 54; RESP 16; TEMP 37.6; O2SAT 97
[2023-01-12] MEDS: Morphine Sulfate 4 MG/ML CARTRIDGE IVPUSH ×2 (21:02→23:36)
[2023-01-12] MEDS: dexAMETHasone sod phosphate 10 MG/ML VIAL IVPUSH (21:03)
[2023-01-12] MEDS: 0.9 % Sodium Chloride 1,000 ML 999 ML IV ×2 (21:07→22:44)
[2023-01-12] MEDS: Piperacillin Sodium/Tazobactam 3.375 GM in 0.9 % Sodium Chloride 50 ML IV (21:13)
[2023-01-12 21:30] VITALS: BP 140/68; PULSE 61; RESP 16; TEMP 37.4; O2SAT 97
[2023-01-12 21:42] LABS: Erythrocyte Sedimentation Rate 31 MM/HR (0-15)
[2023-01-12] MEDS: iohexoL 350 MG/ML 100 ML INFUS..BTL IV (21:55)
[2023-01-12 22:51] VITALS: BP 141/72; PULSE 56; RESP 18; TEMP 37.5; O2SAT 98
--- NOTE | 2023-01-12 23:18 | MHC.EDTECH ---
@[id number] CALL PLACED TO [facility] ACCESS LINE @ REQUEST OF SONIA GARCIA ANSWERS, THEN ASKS TO SPEAKWITH LORENA CARRILLO TAKES OVER CALL RIGHT AWAY
[2023-01-12 23:21] VITALS: BP 132/98; PULSE 64; RESP 16; TEMP 37.4; O2SAT 98
--- NOTE | 2023-01-12 23:23 | MHC.EDTECH ---
@[phone] CALL PLACED TO [facility] @ SONIA CARRILLO REQUEST AFTER [place] [facility] TRANSFER D/T [facility] ANSWERS, TAKES PT INFO, THEN ASKS TO SPEAK WITH LORENA CARRILLO TAKES OVER CALL
--- NOTE | 2023-01-12 23:40 | PC.NURSE ---
pt alert and oriented, skin appropriate for ethnicity, respirations even and unlabored, no respiratory distress at this time, pt's right side of face/jaw area swollen and painful- swollen for about 5-7 days per p, vs stabl
[2023-01-12 23:43] LABS: COVID-19 Test Negative (Negative); IDNOW Serial# 6674DD1D
--- NOTE | 2023-01-12 23:53 | MHC.EDTECH ---
@[phone] CALL PLACED TO [facility] @ REQUEST OF SONIA CARRILLO D/T [facility] DECL[facility]ING TRANSFER OF THIS PT TRISHA ANSWERS, TAKES PT INFO, BEST CALL BACK NUMBER THEN ASKS TO SPEAK WITH LORENA CARRILLO TAKES OVER CALL RIGHT AWAY
--- NOTE | 2023-01-13 00:24 | MHC.EDTECH ---
@1221AM CALL PLACED TO [facility] FOR ADRESS AND RN TO RN NUMBER OF ACCEPTING HOSPITAL TRISHA JOHN MAJOR GIVES ADDRESS [address] [place] [address], [place] ,[place], [address] RN TO RN # @ TRIAGE [phone]
--- NOTE | 2023-01-13 00:45 | MHC.EDTECH ---
@[id number] CALL PLACED TO [facility] FOR BLS TX TO [facility]: [address] [facility], [place], [place] BRIAN ANSWERS AND GIVES A HALF HOUR ETA
--- NOTE | 2023-01-13 01:03 | PC.NURSE ---
report given to Malika mota at [facility]
[2023-01-13 01:14] VITALS: BP 130/67; PULSE 63; RESP 16; TEMP 37.1; O2SAT 97
== END 2023-01-13 01:29 | disposition short-term general hospital (02) ==
PROVIDERS: Physician Assistant; Emergency Provider Emergency Medicine
DX: L02.01 Cutaneous abscess of face (principal); K02.9 Dental caries, unspecified; R51.9 Headache, unspecified; K08.89 Other specified disorders of teeth and supporting structures; Z20.822 Contact with and (suspected) exposure to COVID-19; F12.90 Cannabis use, unspecified, uncomplicated; Z79.899 Other long term (current) drug therapy
CPT/HCPCS: 36415; 70487; 80048; 80076; 83605; 83735; 85025; 85652; 86140; 87040; 87635; 96361; 96374; 96375; 96376; 99285; J1100; J2270; J2543; Q9967

== ENCOUNTER 2023-06-01 11:05 | Emergency (ER) | payer MEDICAID, SELFPAY ==
--- NOTE | ~2023-06-01 | XR_ITS ---
EXAMINATION: XR WRIST, RIGHT CLINICAL INFORMATION: Pain after injury one day ago. COMPARISON: None available. TECHNIQUE: PA, lateral, and oblique views of the right wrist. FINDINGS: Arrow points to the ulnar aspect of the wrist. No focal soft tissue swelling. No fracture or dislocation. Alignment and articulations are maintained. XR/XR wrist RT min 3V IMPRESSION: Unremarkable right wrist.
[2023-06-01 11:10] VITALS: BP 132/56; PULSE 58; RESP 18; TEMP 36.6; O2SAT 98; BMI 34.9
--- NOTE | 2023-06-01 11:11 | ED_ITS ---
HPI - General Adult General Chief complaint: Extremity Injury, Upper Stated complaint: R wrist pain, work injury Time Seen by Provider: 06/01/23 11:49 Source: patient Mode of arrival: ambulatory Limitations: no limitations History of Present Illness HPI narrative: 28 year old male w/ no significant pmhx presents to the ED today for complaints of pain in the dorsal aspect of his right wrist secondary to hitting it at work yesterday. He states that he only feels the pain with movement and describes it as a dull sharp sensation. He denies any pins/needles, bruising, loss of sensation, swelling, redness, or warmth. He says he used a brace he had at home but that it was causing discomfort. He denies FOOSH. complaint: right wrist pain Onset (ago): day(s) (1) Location: upper extremity (right wrist) Radiation: non-radiation Quality: stabbing and dull Pain Consistency: intermittent Relieving factors: immobilization Exacerbating factors: movement Associated symptoms: denies other symptoms Treatments prior to arrival: none Related Data Previous Rx's Medication Instructions Recorded ibuprofen 800 mg tablet 800 mg PO Q8H PRN pain #30 tabs 11/03/20 penicillin V potassium 500 mg 500 mg PO BID 10 days #20 tabs 11/03/20 tablet ibuprofen 600 mg tablet 600 mg PO TID PRN pain #14 tabs 12/29/20 penicillin V potassium 500 mg 500 mg PO BID #20 tabs 12/29/20 tablet gentamicin 0.3 % eye drops 1 drp ophthalmic-Right Q4H #5 mL 02/10/21 amoxicillin 875 mg-potassium 1 tab PO Q12H #20 tabs 06/12/21 clavulanate 125 mg tablet (Augmentin) oxycodone 5 mg tablet 5 mg PO Q6H PRN pain #20 tabs 06/12/21 guaifenesin 400 mg tablet 400 mg PO Q4H PRN cough #14 tabs 03/23/22 cephalexin 500 mg tablet 500 mg PO Q6H 10 days #40 tabs 10/30/22 doxycycline hyclate 100 mg capsule 100 mg PO BID 10 days #20 caps 10/30/22 ketorolac 10 mg tablet 10 mg PO TID PRN pain 5 days #15 10/30/22 tabs acetaminophen 500 mg tablet 1,000 mg PO Q6H PRN pain #30 tabs 01/09/23 (Tylenol Extra Strength) chlorhexidine gluconate 0.12 % 15 ml buccal BID #118 mL 01/09/23 mouthwash (Peridex) clindamycin HCl 300 mg capsule 300 mg PO Q6H 7 days #28 caps 01/09/23 hydrocodone 5 mg-acetaminophen 325 1 tab PO Q6H PRN severe pain 01/09/23 mg tablet (scale score 7-10) #8 tabs ibuprofen 800 mg tablet 800 mg PO Q8H PRN pain #30 tabs 01/09/23 ibuprofen 600 mg tablet 600 mg PO Q8H PRN pain #14 tabs 06/01/23 Allergies Allergy/AdvReac Type Severity Reaction Status Date / Time SEASONAL ALLERGIES Allergy Mild RUNNY NOSE Uncoded 06/01/23 11:10 SNEEZING pollen Allergy Unknown Sneezing Uncoded 06/01/23 11:10 Review of Systems Review of Systems: Yes all other systems are reviewed and are negative PMFSH Past Medical History Medical History Patient denies medical problems Social History Social History Substance Use Type: Marijuana Advance Directives: No Advance Directives Information Provided: No Physical Exam ED Vital Signs: Vital Signs - 24 hr 06/01/23 11:10 Temperature 98 F Pulse Rate 58 Respiratory Rate 18 Blood Pressure 132/56 L Pulse Oximetry 98 Oxygen Delivery Method Room Air BMI result Body Mass Index 34.9 Appearance: Alert. Oriented X3. No acute distress. Head: normocephalic, atraumatic. Eyes: Pupils equal, round and reactive to light. Neck: Normal inspection. Neck supple. CVS: Normal heart rate and rhythm. Pulses normal. Respiratory: No respiratory distress. Breath sounds normal. Skin: Skin warm and dry. Normal skin color. Normal skin turgor. No rashes. Extremities: (+) tenderness to palpation of the dorsal aspect of the right wrist, mostly over styloid process. (+) slight decrease in ROM & strength secondary to pain. (+) Pulses. (+) sensation. No snuffbox tenderness. No edema, erythema, ecchymosis, or warmth. Normal LUE. No lower extremity edema. No joint swelling. Neuro/psych: Oriented X 3. No motor deficit. No sensory deficit. CN II-XII intact. Normal speech and cognition. Medical Decision Making Medical Decision Making MDM Narrative: 28-year-old male presents for evaluation of right wrist pain after injuring at work yesterday. He reports that he accidentally struck it on a machine. On exam VSS, NAD, and PE as above. Likely a contusion of the right dorsal wrist. Lower suspicion for an acute fracture/dislocation, muscle stain/sprain, carpal tunnel syndrome, tendonitis Plan: x-ray is normal, SAGE wrap, ice, elevation, NSAIDs Differential Diagnosis Differential Diagnoses: The differential diagnosis associated with the presentation includes acute fracture/dislocation, muscle stain/sprain, carpal tunnel syndrome, tendonitis Independent Interpretation I performed an independent interpretation of an: Plain X-Ray Interpretation: reviewed - no acute fracture or dislocation, agree w/ radiology read Radiology Impression Discussion of test interpretation with radiology: I have reviewed the radiologist's reading. Radiologist Impression: EXAMINATION: XR WRIST, RIGHT CLINICAL INFORMATION: Pain after injury one day ago.? COMPARISON: None available.? TECHNIQUE: PA, lateral, and oblique views of the right wrist. FINDINGS: Arrow points to the ulnar aspect of the wrist. No focal soft tissue swelling. No fracture or dislocation. Alignment and articulations are maintained. XR/XR wrist RT min 3V IMPRESSION: Unremarkable right wrist. External Record Review External record reviewed: Prior outpatient labs Prescription Management I considered prescription management with: Pain Medication Critical Care Time Critical Care Time Critical Care Time: No Discharge Plan Discharge Clinical Impression: Contusion of right wrist Patient Disposition: Home, Self-Care Instructions: Wrist Injury (ED) Additional Instructions: Your x-ray today was normal. Rest your wrist and elevate your hand when possible Recommend SAGE wrap for support and compression. Use ice several times per day for the next 48 hours. Take Motrin and/or Tylenol as needed for pain. Follow up with your doctor as needed. Prescriptions: New ibuprofen 600 mg tablet 600 mg PO Q8H PRN (Reason: pain) Qty: 14 0RF No Action gentamicin 0.3 % drops 1 drp ophthalmic-Right Q4H Qty: 5 0RF ibuprofen 800 mg tablet 800 mg PO Q8H PRN (Reason: pain) Qty: 30 0RF penicillin V potassium 500 mg tablet 500 mg PO BID 10 Days Qty: 20 0RF penicillin V potassium 500 mg tablet 500 mg PO BID Qty: 20 0RF ibuprofen 600 mg tablet 600 mg PO TID PRN (Reason: pain) Qty: 14 0RF amoxicillin-pot clavulanate [Augmentin] 875-125 mg tablet 1 tab PO Q12H Qty: 20 0RF oxycodone 5 mg tablet 5 mg PO Q6H PRN (Reason: pain) Qty: 20 0RF Rx Instructions: Patient may request partial fill Attending Name Dr Ania Gay and BREANNA#: my BREANNA# [id number] guaifenesin 400 mg tablet 400 mg PO Q4H PRN (Reason: cough) Qty: 14 0RF doxycycline hyclate 100 mg capsule 100 mg PO BID 10 Days Qty: 20 0RF ketorolac 10 mg tablet 10 mg PO TID PRN (Reason: pain) 5 Days Qty: 15 0RF Rx Instructions: Tolerated IM in the department cephalexin 500 mg tablet 500 mg PO Q6H 10 Days Qty: 40 0RF clindamycin HCl 300 mg capsule 300 mg PO Q6H 7 Days Qty: 28 0RF ibuprofen 800 mg tablet 800 mg PO Q8H PRN (Reason: pain) Qty: 30 0RF hydrocodone-acetaminophen 5-325 mg tablet 1 tab PO Q6H PRN (Reason: severe pain (scale score 7-10)) Qty: 8 0RF Rx Instructions: Partial Fill upon patient request. acetaminophen [Tylenol Extra Strength] 500 mg tablet 1,000 mg PO Q6H PRN (Reason: pain) Qty: 30 0RF chlorhexidine gluconate [Peridex] 0.12 % mouthwash 15 ml buccal BID Qty: 118 0RF Referrals: [facility] [Primary Care Provider] - Stand Alone Forms: Work/School Release Interventions: ED Discharge Assessment Last Done: 06/01/23 12:55 Discharge Date/Time: 06/01/23 12:58
== END 2023-06-01 12:58 | disposition home or self-care (01) ==
PROVIDERS: Emergency Provider Emergency Medicine
DX: S60.211A Contusion of right wrist, initial encounter (principal); Y29.XXXA Contact with blunt object, undetermined intent, initial encounter; Y93.9 Activity, unspecified; Y92.9 Unspecified place or not applicable; Y99.0 Civilian activity done for income or pay
CPT/HCPCS: 73110; 99282; 99283